=== PATIENT | female | born 1955 | race Hispanic/Latino ===

== ENCOUNTER 2018-12-21 19:51 | Emergency (ER) | payer MEDICARE ==
--- OUTSIDE RECORDS SUMMARY | 2018-12-21 19:53 | XMS REPORT ---
:1955 [facility] Address [address] [place] [address] [place] [id number] Care Team Providers Name Role Phone Unavailable Unavailable Unavailable Problems This patient has no known problems. Allergies, Adverse Reactions, Alerts This patient has no known allergies or adverse reactions. Medications This patient has no known medications.
--- OUTSIDE RECORDS SUMMARY | 2018-12-21 19:53 | XMS REPORT ---
:1955 Author Organization eClinicalWorks Care Team Providers Name Role Phone Tereso Nemesio Provider Role Unavailable Allergies No Known Allergies Problems Problem Type Condition Code Onset Dates Condition Status Problem Hx of cervical cancer Z85.41 Active Problem Traumatic subarachnoid hemorrhage S06.6X0S Active without loss of consciousness, sequela Problem Chronic kidney disease, stage 3 N18.3 Active Problem Stroke I63.9 Active Problem Renal insufficiency N28.9 Active Problem Hyperlipidemia E78.5 Active Problem Seizure R56.9 Active Problem Cancer C80.1 Active Problem Osteoarthritis M19.90 Active Problem Memory loss R41.3 Active Assessment Chronic kidney disease, stage 3 N18.3 Active Assessment Traumatic subarachnoid hemorrhage S06.6X0S Active without loss of consciousness, sequela Assessment History of fall Z91.81 Active Problem History of fall Z91.81 Active Assessment Hyperlipidemia E78.5 Active Problem Odynophagia R13.10 Active Medications Medication Code Code Instructions Start End Status Dosage System Date Date Ferrous [facility] 98323561688 325 (65 Fe) MG Active 1 tablet Sulfate Orally Once a day Lipitor ND 69331145833 40 MG Orally Active 1 tablet Once a day Fish Oil ND 92030211562 1000 MG Orally Active 1 capsule Once a day Aspir-81 ND 03147306761 81 MG Orally Active 1 tablet Once a day Calcium ND 87334587643 500 MG Orally Active not defined Results No Known Results Summary Purpose eClinicalWorks Submission
--- OUTSIDE RECORDS SUMMARY | 2018-12-21 19:53 | XMS REPORT ---
:1955 Author Organization eClinicalWorks Care Team Providers Name Role Phone Nemesio Rider Provider Role Unavailable Allergies, Adverse Reactions, Alerts Substance Reaction Event Type penicillin Info Not Available Drug Allergy Problems Problem Type Condition Code Onset Dates [...] Active Problem Memory loss R41.3 Active Assessment Noncompliance with medication Z91.14 Active regimen Assessment History of fall Z91.81 Active Assessment Traumatic subarachnoid hemorrhage S06.6X0S Active without loss of consciousness, sequela Assessment Hyperlipidemia E78.5 Active Problem History of fall Z91.81 Active Assessment Chronic kidney disease, stage 3 N18.3 Active Problem Odynophagia R13.10 Active Medications Medication Code Code Instructions Start End Status Dosage System Date Date Fish Oil [facility] 71840563873 1000 MG Orally Active 1 capsule Once a day Aspir-[address] [facility] 53801899697 81 MG Orally Active 1 tablet Once a day Lipitor [facility] 06597510181 40 MG Orally Active 1 tablet Once a day Ferrous [facility] 21944873268 325 (65 Fe) MG Active 1 tablet Sulfate Orally Once a day Calcium [facility] 98412977298 500 MG Orally Active not defined Results No Known Results Summary Purpose eClinicalWorks Submission
--- OUTSIDE RECORDS SUMMARY | 2018-12-21 19:54 | XMS REPORT ---
:1955 Author Organization eClinicalWorks Care Team Providers Name Role Phone Tereso Nemesio Provider Role Unavailable Allergies, Adverse Reactions, Alerts [...] Active Problem Memory loss R41.3 Active Assessment Dysuria R30.0 Active Problem History of fall Z91.81 Active Assessment Acute cystitis without hematuria N30.00 Active Problem Odynophagia R13.10 Active Medications Medication Code Code Instructions Start End Status Dosage System Date Date Lipitor [facility] 78373244673 40 MG Orally Active 1 tablet Once a day Fish Oil [facility] 05405827293 1000 MG Orally Active 1 capsule Once a day Ferrous Sulfate [facility] 91405990552 325 (65 Fe) MG Active 1 tablet Orally Once a day Nitrofurantoin [facility] 17746531305 100 MG Orally Jun 30, Jul 05, Active 1 capsule Monohyd Macro every 12 hrs 2018 2018 with food Aspir-81 [facility] 52228784391 81 MG Orally Active 1 tablet Once a day Calcium ND 69660201807 500 MG Orally Active not defined Results Name Result Date Reference Range Unit Abnormality Flag URINALYSIS AUTO W/O SCOPE ----Blood (Non-Hemolyzed) Negative 20180630 ----Ketones 1+ 20180630 ----Glucose (mg/dL) Negative 20180630 ----Protein (mg/dL) 2+ 20180630 ----Specific [place] >=1.030 20180630 ----pH 5.5 20180630 ----Leukocytes Trace 20180630 ----Nitrite Negative 20180630 Summary Purpose eClinicalWorks Submission
--- OUTSIDE RECORDS SUMMARY | 2018-12-21 19:54 | XMS REPORT ---
:1955 Author Organization eClinicalWorks Care Team Providers Name Role Phone Nemesio Rider Provider Role Unavailable Allergies No Known Allergies Problems Problem Type Condition Code Onset Dates Condition Status Problem Hx of cervical cancer Z85.41 Active Problem Traumatic subarachnoid hemorrhage S06.6X0S Active without loss of consciousness, sequela Problem Chronic kidney disease, stage 3 N18.3 Active Problem History of fall Z91.81 Active Problem Odynophagia R13.10 Active Problem Stroke I63.9 Active Problem Renal insufficiency N28.9 Active Problem Hyperlipidemia E78.5 Active Problem Seizure R56.9 Active Problem Cancer C80.1 Active Problem Osteoarthritis M19.90 Active Problem Memory loss R41.3 Active Medications No Known Medications Results No Known Results Summary Purpose [employer] Submission
[2018-12-21] MEDS ORDERED: MORPHINE 2 MG/ML SYR ONE ×2 (20:36→23:28)
[2018-12-21] MEDS ORDERED: ONDANSETRON 4 MG/2 ML VIAL ONE (20:36)
[2018-12-21] MEDS ORDERED: NA CHLORIDE 0.9% 1,000 ML ONE (20:36)
[2018-12-21 20:46] LABS: Absolute Lymphocytes (CBC) 1.6 K/uL (0.7-4.9); Basophils % 0.5 % (0-1.3); Eosinophils % 0.2 % (0-4.4); Hematocrit 37.7 % (36.0-45.0); Lymphocytes % 12.6 % (15.3-44.8); MPV 9.4 fL (7.6-11.3); Monocytes % 7.5 % (3.3-12.3); RBC Red Blood Cell Count 4.11 M/uL (3.86-4.86)
[2018-12-21 20:56] LABS: Protime INR 0.97
[2018-12-21 20:59] LABS: Urine Blood NEGATIVE (NEG); Urine Glucose NEGATIVE (NEG); Urine Protein 1+ (NEG); Urine Specific Gravity 1.025 (1.005-1.030)
[2018-12-21 21:04] LABS: ALT/SGPT 19 U/L (12-78); AST/SGOT 12 U/L (15-37); Albumin 3.4 g/dL (3.4-5.0); Alkaline Phosphatase 85 U/L (45-117); BUN Blood Urea Nitrogen 20 mg/dL (7-18); Bicarbonate 28 mmol/L (21-32); Bilirubin Direct 0.1 mg/dL (0-0.2); Bilirubin Total 0.3 mg/dL (0.2-1.0); Glucose Level 125 mg/dL (74-106); NT PRO-BNP 196 pg/mL (<125); Potassium 3.5 mmol/L (3.5-5.1); Protein, Total 6.4 g/dL (6.4-8.2); Sodium Level 136 mmol/L (136-145); Troponin (Emerg Dept Use Only) < 0.02 ng/mL (0.0-0.045)
--- NOTE | 2018-12-21 21:34 | EDPHYS ---
Physician Documentation [facility] Name: Hodan Dalal Age: 63 yrs Sex: Female : 1955 Arrival Date: 12/21/2018 Time: 19:53 Bed 2 Private MD: ED Physician Kwadwo Blackburn HPI: 12/21 20:43 This 63 yrs old Female presents to ER via EMS with complaints of fall , right dianna femur pain, swelling. 20:43 The patient presents with decreased range of motion, an injury, pain. The complaints dianna affect the lateral aspect of right thigh, right hamstring, medial aspect of right thigh and right quadriceps. Context: The problem was sustained at home. Onset: The symptoms/episode began/occurred just prior to arrival. Treatment prior to arrival includes: splinting the affected extremity. Severity of symptoms: At their worst the symptoms were moderate, in the emergency department the symptoms are unchanged. The patient has not experienced similar symptoms in the past. Historical: - Allergies: 20:11 PENICILLINS; tl2 - Home Meds: 20:11 atorvastatin oral oral [Active]; tl2 - PMHx: 20:11 Hyperlipidemia; tl2 - Immunization history:: Adult Immunizations up to date. - Social history:: Smoking status: Patient/guardian denies using tobacco. - Immunization history: Last tetanus immunization: unknown. - Ebola Screening: : No symptoms or risks identified at this time. - Family history:: not pertinent. ROS: 20:43 Constitutional: Negative for fever, chills, and weight loss, Eyes: Negative for injury, dianna pain, redness, and discharge, ENT: Negative for injury, pain, and discharge, Neck: Negative for injury, pain, and swelling, Cardiovascular: Negative for chest pain, palpitations, and edema, Respiratory: Negative for shortness of breath, cough, wheezing, and pleuritic chest pain, Abdomen/GI: Negative for abdominal pain, nausea, vomiting, diarrhea, and constipation, Back: Negative for injury and pain, : Negative for injury, bleeding, discharge, and swelling, Skin: Negative for injury, rash, and discoloration, Neuro: Negative for headache, weakness, numbness, tingling, and seizure, Psych: Negative for depression, anxiety, suicide ideation, homicidal ideation, and hallucinations, Allergy/Immunology: Negative for hives, rash, and allergies, Endocrine: Negative for neck swelling, polydipsia, polyuria, polyphagia, and marked weight changes, Hematologic/Lymphatic: Negative for swollen nodes, abnormal bleeding, and unusual bruising. 20:43 MS/extremity: Positive for decreased range of motion, pain, swelling, tenderness, of the lateral aspect of right thigh, right hamstring, medial aspect of right thigh and right quadriceps. Exam: 20:43 Constitutional: This is a well developed, well nourished patient who is awake, alert, dianna and in no acute distress. Head/Face: Normocephalic, atraumatic. Eyes: Pupils equal round and reactive to light, extra-ocular motions intact. Lids and lashes normal. Conjunctiva and sclera are non-icteric and not injected. Cornea within normal limits. Periorbital areas with no swelling, redness, or edema. ENT: Nares patent. No nasal discharge, no septal abnormalities noted. Tympanic membranes are normal and external auditory canals are clear. Oropharynx with no redness, swelling, or masses, exudates, or evidence of obstruction, uvula midline. Mucous membranes moist. Neck: Trachea midline, no thyromegaly or masses palpated, and no cervical lymphadenopathy. Supple, full range of motion without nuchal rigidity, or vertebral point tenderness. No Meningismus. Chest/axilla: Normal chest wall appearance and motion. Nontender with no deformity. No lesions are appreciated. Cardiovascular: Regular rate and rhythm with a normal S1 and S2. No gallops, murmurs, or rubs. Normal PMI, no JVD. No pulse deficits. Respiratory: Lungs have equal breath sounds bilaterally, clear to auscultation and percussion. No rales, rhonchi or wheezes noted. No increased work of breathing, no retractions or nasal flaring. Abdomen/GI: Soft, non-tender, with normal bowel sounds. No distension or tympany. No guarding or rebound. No evidence of tenderness throughout. Back: No spinal tenderness. No costovertebral tenderness. Full range of motion. Female : Normal external genitalia. Skin: Warm, dry with normal turgor. Normal color with no rashes, no lesions, and no evidence of cellulitis. Neuro: Awake and alert, GCS 15, oriented to person, place, time, and situation. Cranial nerves II-XII grossly intact. Motor strength 5/5 in all extremities. Sensory grossly intact. Cerebellar exam normal. Normal gait. Psych: Awake, alert, with orientation to person, place and time. Behavior, mood, and affect are within normal limits. 20:43 Musculoskeletal/extremity: Extremities: decreased ROM, pain, swelling, ROM: limited active range of motion due to pain, limited passive range of motion due to pain, Circulation is intact in all extremities. Sensation intact. Compartment Syndrome exam of affected extremity: is normal. DVT Exam: negative Homans' sign noted on exam, no appreciated bluish discoloration, no erythema, no increased warmth, pain, swelling, tenderness. Vital Signs: 20:11 BP 109 / 57; Pulse 70; Resp 18; Pulse Ox 95% on R/A; Weight 68.04 kg; Height 5 ft. 1 tl2 in. (154.94 cm); Pain 10/10; 21:30 BP 106 / 71; Pulse 80; Resp 17; Pulse Ox 97% ; Pain 5/10; tl1 22:44 BP 98 / 56; Pulse 70; Resp 15; Pulse Ox 96% ; Pain 3/10; tl1 20:11 Body Mass Index 28.34 (68.04 kg, 154.94 cm) tl2 [place] Coma Score: 20:11 Eye Response: spontaneous(4). Verbal Response: oriented(5). Motor Response: obeys tl2 commands(6). Total: 15. Trauma Score (Adult): 20:11 Eye Response: spontaneous(1); Verbal Response: oriented(1); Motor Response: obeys tl2 commands(2); Systolic BP: > 89 mm Hg(4); Respiratory Rate: 10 to 29 per min(4); Mantador Score: 15; Trauma Score: 12 Procedures: 23:25 Splinting: Splint applied to right leg using Orthoglass splint, applied by myself. dianna Examined by me, post splint application: neurovascular intact, 2+ distal pulses palpable, brisk capillary refill noted, Patient tolerated well. MDM: 19:58 Patient medically screened. [facility] 20:46 Data reviewed: vital signs, nurses notes, lab test result(s), EKG, radiologic studies, [facility] plain films. 12/21 20:01 Order name: Basic Metabolic Panel [facility] 12/21 20: Order name: CBC with Diff; Complete Time: 21:29 [facility] 12/21 20:01 Order name: LFT's; Complete Time: 21:29 [facility] 12/21 20:01 Order name: Magnesium; Complete Time: 21:29 [facility] 12/21 20:01 Order name: NT PRO-BNP; Complete Time: 21:29 [facility] 12/21 20:01 Order name: PT-INR; Complete Time: 21:29 [facility] 12/21 20:01 Order name: Troponin (emerg Dept Use Only); Complete Time: 21:29 [facility] 12/21 20:01 Order name: XRAY Chest (1 view) [facility] 12/21 20:01 Order name: Pelvis XRAY [facility] 12/21 20:01 Order name: Urine Culture [facility] 12/21 20:01 Order name: Hip Right 2 View XRAY [facility] 12/21 20:01 Order name: Femur Right XRAY [facility] 12/21 20:05 Order name: Basic Metabolic Panel; Complete Time: 21:29 EDMS 12/21 20:54 Order name: Urine Dipstick--Ancillary (enter results) [facility] 12/21 20:01 Order name: EKG; Complete Time: 20:06 [facility] 12/21 20:01 Order name: Cardiac monitoring; Complete Time: 20:21 [facility] 12/21 20:01 Order name: EKG - Nurse/Tech; Complete Time: 20:21 [facility] 12/21 20:01 Order name: IV Saline Lock; Complete Time: 20:21 [facility] 12/21 20:01 Order name: Labs collected and sent; Complete Time: 23:55 [facility] 12/21 20:01 Order name: O2 Per Protocol; Complete Time: 20:21 [facility] 12/21 20:01 Order name: O2 Sat Monitoring; Complete Time: 20:21 [facility] 12/21 20:43 Order name: Tib Fib Right XRAY [facility] 12/21 20:51 Order name: Larsen; Complete Time: 20:51 tl1 12/21 21:29 Order name: Splint - Long Leg: Posterior w/ Stirrup; Complete Time: 23:24 [facility] Administered Medications: 20:25 Drug: NS 0.9% 1000 ml Route: IV; Rate: 125 ml/hr; Site: right forearm; tl2 23:53 Follow up: IV Status: Infusion continued upon transfer tl2 20:25 Drug: morphine 2 mg Route: IVP; Site: right forearm; tl2 21:00 Follow up: Response: No adverse reaction; Pain is decreased tl2 20:25 Drug: Zofran 4 mg Route: IVP; Site: right forearm; tl2 21:00 Follow up: Response: No adverse reaction tl2 23:23 Drug: morphine 2 mg Route: IVP; Infused Over: 2 mins; Site: right forearm; tl1 23:50 Follow up: Response: No adverse reaction; Pain is decreased tl2 Disposition: 12/21/18 21:34 Transfer ordered to [facility]. Diagnosis are Fall due to bumping against object, Displaced spiral fracture of shaft of right femur - periprosthetic. - Reason for transfer: Higher level of care. - Accepting physician is to [facility], trauma , ortho. - Condition is Fair. - Problem is new. - Symptoms have improved. Signatures: Dispatcher [employer] Kwadwo Stokes MD MD cha Lasagna, Tonya, RN RN tl1 Taryn Lyons RN RN tl2 Corrections: (The following items were deleted from the chart) 23:55 21:34 12/21/2018 21:34 Transfer ordered to [facility]. Diagnosis is Fall due to tl2 bumping against object; Displaced spiral fracture of shaft of right femur - periprosthetic. Reason for transfer: Higher level of care. Accepting physician is to [facility], trauma , ortho. Condition is Fair. Problem is new. Symptoms have improved. dianna
--- NOTE | 2018-12-21 21:34 | ER ---
Nurse's Notes [facility] Name: Hodan Dalal Age: 63 yrs Sex: Female : 1955 Arrival Date: 12/21/2018 Time: 19:53 Bed 2 Private MD: Diagnosis: Fall due to bumping against object;Displaced spiral fracture of shaft of right femur-periprosthetic Presentation: 12/21 20:09 Presenting complaint: EMS states: Pt fell in shower, possible right femur fracture. tl2 Transition of care: patient was not received from another setting of care. Onset of symptoms was December 21, 2018. Risk Assessment: Do you want to hurt yourself or someone else? Patient reports no desire to harm self or others. Initial Sepsis Screen: Does the patient meet any 2 criteria? No. Patient's initial sepsis screen is negative. Does the patient have a suspected source of infection? No. Patient's initial sepsis screen is negative. Care prior to arrival: IV initiated. 24 g R hand. 20:09 Method Of Arrival: EMS tl2 20:09 Acuity: DEON 2 tl2 20:11 Mechanism of Injury: Fall from standing position. Trauma event details: Injury occurred tl2 in the [facility]. Historical: - Allergies: 20:11 PENICILLINS; tl2 - Home Meds: 20:11 atorvastatin oral oral [Active]; tl2 - PMHx: 20:11 Hyperlipidemia; tl2 - Immunization history:: Adult Immunizations up to date. - Social history:: Smoking status: Patient/guardian denies using tobacco. - Immunization history: Last tetanus immunization: unknown. - Ebola Screening: : No symptoms or risks identified at this time. - Family history:: not pertinent. Screenin:13 Abuse screen: Denies threats or abuse. Nutritional screening: No deficits noted. tl2 Tuberculosis screening: No symptoms or risk factors identified. Fall Risk Fall in past 12 months (25 points). IV access (20 points). Primary Survey: 20:11 NO uncontrolled hemorrhage observed. A: The patient is alert. Airway: patent, No tl2 supplemental oxygen in use on arrival. Breathing/Chest: Respiratory pattern: regular, Respiratory effort: spontaneous, unlabored, Chest inspection: symmetrical rise and fall of the chest. Circulation: Pulses: palpable . Disability Alert. Exposure/Environment: All clothing and personal items were removed. Forensic evidence collection is not deemed to be indicated at this time. Items placed in patient belonging bag. There is no evidence of uncontrolled external bleeding. Obvious injury(ies) are noted at this time: deformity right leg. 21:10 Reassessment Breathing/Chest Respiratory pattern Regular Respiratory effort Spontaneous tl2 Unlabored Breath sounds Clear Chest inspection Symmetrical Circulation Color [place] Disability Alert. Secondary Survey: 20:11 HEENT: No deficits noted. Gastrointestinal: No deficits noted. : No deficits noted. tl2 Musculoskeletal: Bony deformity noted of medial aspect of right thigh Swelling absent. Assessment: 20:15 General: Appears uncomfortable, Behavior is calm, cooperative, appropriate for age. tl1 Pain: Complains of pain in right leg and right quadriceps and medial aspect of right thigh and right hamstring and lateral aspect of right thigh Pain currently is 10 out of 10 on a pain scale. Quality of pain is described as aching, sharp, shooting. Neuro: Level of Consciousness is awake, alert, obeys commands, Oriented to person, place, time, situation. Cardiovascular: Denies chest pain. Respiratory: Airway is patent Trachea midline Respiratory effort is even, unlabored, Breath sounds are clear bilaterally. GI: Abdomen is non-distended, Bowel sounds present X 4 quads. : No signs and/or symptoms were reported regarding the genitourinary system. EENT: No signs and/or symptoms were reported regarding the EENT system. Musculoskeletal: Bony deformity noted of lateral aspect of right thigh Swelling present in medial aspect of right thigh and lateral aspect of right thigh Tenderness present in right leg and right quadriceps and medial aspect of right thigh and right hamstring and lateral aspect of right thigh Reports pain in right leg and right quadriceps and medial aspect of right thigh and right hamstring and lateral aspect of right thigh. Injury Description: Deformity sustained to medial aspect of right thigh and lateral aspect of right thigh. Vital Signs: 20:11 BP 109 / 57; Pulse 70; Resp 18; Pulse Ox 95% on R/A; Weight 68.04 kg; Height 5 ft. 1 tl2 in. (154.94 cm); Pain 10/10; 21:30 BP 106 / 71; Pulse 80; Resp 17; Pulse Ox 97% ; Pain 5/10; tl1 22:44 BP 98 / 56; Pulse 70; Resp 15; Pulse Ox 96% ; Pain 3/10; tl1 20:11 Body Mass Index 28.34 (68.04 kg, 154.94 cm) tl2 Yamini Coma Score: 20:11 Eye Response: spontaneous(4). Verbal Response: oriented(5). Motor Response: obeys tl2 commands(6). Total: 15. Trauma Score (Adult): 20:11 Eye Response: spontaneous(1); Verbal Response: oriented(1); Motor Response: obeys tl2 commands(2); Systolic BP: > 89 mm Hg(4); Respiratory Rate: 10 to 29 per min(4); Yamini Score: 15; Trauma Score: 12 ED Course: 19:53 Patient arrived in ED. am2 19:53 Jyotsna Mao MD is Private Physician. am2 19:58 Kwadwo Blackburn MD is Attending Physician. dianna 20:11 Triage completed. tl2 20:11 Arm band placed on right wrist. tl2 20:11 Patient maintains SpO2 saturation greater than 95% on room air. tl2 20:11 Maintain EMS IV. Dressing intact. Site clean \T\ dry. Gauge \T\ site: 24 g R FA. tl 2 20:13 Patient has correct armband on for positive identification. Bed in low position. Call tl2 light in reach. Side rails up X2. 20:52 Larsen cath inserted, using sterile technique, 18 Fr., by me, balloon inflated, to jb5 gravity drainage, clamped. urine specimen collected. 21:00 Thermoregulation: warm blanket given to patient. tl2 21:39 Pelvis XRAY In Process Unspecified. EDMS 21:39 Hip Right 2 View XRAY In Process Unspecified. EDMS 21:39 Femur Right XRAY In Process Unspecified. EDMS 21:40 Tib Fib Right XRAY In Process Unspecified. EDMS 21:54 XRAY Chest (1 view) In Process Unspecified. EDMS 23:39 No provider procedures requiring assistance completed. tl2 23:40 Patient transferred, IV remains in place. tl2 Administered Medications: 20:25 Drug: NS 0.9% 1000 ml Route: IV; Rate: 125 ml/hr; Site: right forearm; tl2 23:53 Follow up: IV Status: Infusion continued upon transfer tl2 20:25 Drug: morphine 2 mg Route: IVP; Site: right forearm; tl2 21:00 Follow up: Response: No adverse reaction; Pain is decreased tl2 20:25 Drug: Zofran 4 mg Route: IVP; Site: right forearm; tl2 21:00 Follow up: Response: No adverse reaction tl2 23:23 Drug: morphine 2 mg Route: IVP; Infused Over: 2 mins; Site: right forearm; tl1 23:50 Follow up: Response: No adverse reaction; Pain is decreased tl2 Output: 23:42 Urine: 100ml ([place]); Total: 100ml. tl2 Outcome: 21:34 ER care complete, transfer ordered by MD. bustamante 23:39 Transferred by ground EMS to [facility], Transfer form tl2 completed. 23:39 Condition: stable 23:39 Patient's length of stay in the Emergency Department was greater than 2 hours. 23:55 Patient left the ED. tl2 Signatures: Dispatcher [employer] EDMS Kwadwo Blackburn MD MD cha Lasagna, Tonya, RN RN tl1 Taryn Lyons RN RN tl2 Farzana Murillo [facility] Felicitas Roblero 2
[2018-12-21] MEDS ORDERED: DIPHENHYDRAMINE 50 MG/ML VIAL ONE (23:49)
--- NOTE | 2018-12-22 06:54 | EKG ---
Test Date: 2018-12-21 Test Time: 20:11:52 Shredding Machine Tender: YOAV MEASUREMENT RESULTS: Intervals: Rate: 66 MS: 130 QRSD: 84 QT: 424 QTc: 444 [place]: P: 28 MS: 130 QRS: 1 T: 19 INTERPRETIVE STATEMENTS: Normal sinus rhythm Low voltage QRS Borderline ECG Compared to ECG 01/21/2012 11:24:37 Low QRS voltage now present Sinus bradycardia no longer present Electronically Signed On 12-22-18 06:53:05 CDT by Maurisio Pang
--- NOTE | 2018-12-22 08:43 | RAD REPORT ---
EXAM DESCRIPTION: RAD - Pelvis - 12/21/2018 9:38 pm CLINICAL HISTORY: Fall, pelvic pain COMPARISON: December 2014 TECHNIQUE: AP imaging of the pelvis was obtained. FINDINGS: Lowest lumbar level is partially sacralized. No acute sacral ala or SI joint abnormality i dentifiable. Pubic symphysis degenerative changes are present have progressed slightly from compariso n. No pelvic fracture seen. No acute hip joint abnormality. Bilateral hip prostheses in place. IMPRESSION: No fracture or acute finding of the pelvis.
--- NOTE | 2018-12-22 08:45 | RAD REPORT ---
EXAM DESCRIPTION: RAD - Hip Right 2 View - 12/21/2018 9:38 pm CLINICAL HISTORY: Fall, pelvic and hip pain COMPARISON: None. FINDINGS: AP and cross-table lateral views were obtained. Spiral fracture of the proximal femoral sh aft is present. Right hip prosthesis in place. Cerclage wires are present around the proximal femur f rom a prior fracture repair. V/Q fracture begins near the inferior most cerclage wire. This involves or surrounds the distal half of the femoral shaft. No pathologic bone process. Approximately 20 degre es angulation deformity is present with lateral displacement of the shaft of the distal femur. No acute finding at the hip joint. IMPRESSION: Spiral fracture of the proximal shaft of the right femur. Fracture surrounds the distal half of the right femoral hip implant.
--- NOTE | 2018-12-22 08:47 | RAD REPORT ---
EXAM DESCRIPTION: RAD - Femur Right - 12/21/2018 9:38 pm CLINICAL HISTORY: Fall, pelvis, right hip and right leg pain COMPARISON: Pelvis and right hip films same date FINDINGS: Spiral fracture is present in the shaft of the femur. Fracture begins at the inferior cerc giselle wire and extends several cm below the tip of the femoral hip implant. Anterior and lateral 20 de gree angulation deformity is present of the distal femur. One shaft width displacement also present. No pathologic component seen. No acute finding at the hip joint. No air or foreign body in the soft t issues. IMPRESSION: Right femur spiral fracture in the midshaft as detailed.
--- NOTE | 2018-12-22 08:48 | RAD REPORT ---
EXAM DESCRIPTION: RAD - Tib Fib Right - 12/21/2018 9:40 pm CLINICAL HISTORY: Fall, pelvic and leg pain on the right COMPARISON: Pelvis hip and femur films same date FINDINGS: No fracture is identified. There is no dislocation or periosteal reaction noted. No acute or suspicious bony finding. No foreign body or other soft tissue abnormality. IMPRESSION: Negative right tibia & fibula examination.
--- NOTE | 2018-12-22 08:50 | RAD REPORT ---
EXAM DESCRIPTION: RAD - Chest Single View - 12/21/2018 9:54 pm CLINICAL HISTORY: Fall, femur fracture, preoperative examination COMPARISON: December 2011 TECHNIQUE: AP portable chest image was obtained 2151 hours . FINDINGS: No acute lung parenchymal process. Lung markings are similar to comparison. No failure or volume overload. Heart and vasculature are normal. No measurable pleural effusion and no pneumothorax . No acute bony abnormality seen. No acute aortic findings suspected. IMPRESSION: No acute cardiopulmonary process.
[2018-12-22 20:22] VITALS: BP 98/56; O2SAT 96
== END 2018-12-21 23:55 | disposition short-term general hospital (02) ==
LOC: ER 19:51
PROC: 2W3LX1Z Immobilization of Right Lower Extremity using Splint (ICD-10-PCS; principal; 2018-12-21)
DX: S72.341A Displaced spiral fracture of shaft of right femur, initial encounter for closed fracture (principal); M97.01XA Periprosthetic fracture around internal prosthetic right hip joint, initial encounter; W19.XXXA Unspecified fall, initial encounter; Y93.9 Activity, unspecified; Y92.009 Unspecified place in unspecified non-institutional (private) residence as the place of occurrence of the external cause; Z88.0 Allergy status to penicillin; E78.5 Hyperlipidemia, unspecified
CPT/HCPCS: 96361; 93005; 87088; 85025; 80048; 36415; 83735; 85610; 80076; 81003; 84484; 83880; 71045; 72170; 73502; 73552; 73590; 51702; 96375; 96374; 99285; 29505; J2270 ×2; J7030; J2405; 87086

== ENCOUNTER 2019-05-16 07:52 | Emergency (ER) | payer MEDICARE, OTHER ==
--- OUTSIDE RECORDS SUMMARY | 2019-05-16 07:54 | XMS REPORT ---
:1955 Author Organization [facility] Address [address] [place] [address] [place] [id number] Care Team Providers Name Role Phone Unavailable Unavailable Unavailable Problems This patient has no known problems. Allergies, Adverse Reactions, Alerts This patient has no known allergies or adverse reactions. Medications This patient has no known medications.
--- OUTSIDE RECORDS SUMMARY | 2019-05-16 07:55 | XMS REPORT | Summary of Care ---
:1955 Author Organization [facility] Address [address] [place] [address] Care Team Providers Name Role Phone Nemesio Rider Bree Primary Care Provider Tal Kern MD Unavailable Reason for Referral Radiology Services (Routine) Status Reason Specialty Diagnoses / Referred By Referred To Procedures Contact Contact New Request Diagnostic Diagnoses Periprosthetic fracture of shaft of femur [facility], Radiology Procedures XR FEMUR 2 VW RIGHT Silvestre Franco MD [address] [place] [address] [address] [place] [address] Encounter Details Date Type Department Care Team Description 02/24/2019 Abstract [facility] Jc Mabry Periprosthetic fracture Orthopaedic Surgery- MD Amilcar of shaft of femur [address] (Primary Dx) [address] [place] [address] 1.211 [id number] [place], [place] [phone] [address] [phone] Allergies Active Allergy Reactions Severity Noted Date Comments Morphine Rash Low 12/22/2018 Penicillins Itching, Rash 12/22/2005 documented as of this encounter (statuses as of 02/24/2019) Medications Medication Sig Dispensed Refills Start Date End Date Status atorvastatin 40 mg Take 40 mg by 0 11/22/2018 Active tablet mouth at bedtime. HYDROcodone-acetaminophe Take 1 tablet by 30 tablet 0 12/28/2018 Active n 10-325 mg mouth every 4 tabletIndications: (four) hours as Periprosthetic fracture needed for Pain of shaft of femur (scale 4-6) or Pain (scale 7-10). sennosides 8.6 mg Take 1 tablet by 14 tablet 0 12/28/2018 Active tabletIndications: mouth daily. Periprosthetic fracture of shaft of femur traMADol 50 mg Take 1 tablet by 30 tablet 0 02/09/2019 Active tabletIndications: mouth every 6 Periprosthetic fracture (six) hours as of shaft of femur needed for Pain (scale 4-6). 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 injury 06/24/2016 Fever 06/24/2016 Follow-up examination after orthopedic surgery 08/05/2013 Other follow-up examination(V67.59) 03/09/2007 Overview: Six month followup Malignant neoplasm of cervix uteri 12/21/2006 Overview: ICD10 Diagnosis Term [employer]ire [employer]er Utility 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 documented as of this encounter Last Filed Vital Signs Not on filedocumented in this encounter Plan of Treatment Date Type Specialty Care Team Description 02/24/2019 Appointment Radiology Silvestre Nguyễn MD [address] [facility] 2.[address] [place], [place] [id number] 02/24/2019 Office Visit Orthopedic Surgery Silvestre Nguyễn MD [address] [facility] [address] [place], [place] [address] Name Type Priority Associated Diagnoses Order Schedule XR FEMUR 2 VW RIGHT IMAGING Routine Periprosthetic fracture of Expected: , shaft of femur Expires: 02/25/2020 Health Maintenance Due Date Last Done Comments HEPATITIS C (HCV) SCREEN 1955 PNEUMOCOCCAL 0-64 YEARS COMBINED 1962 SERIES (1 of 3 - PCV13) DTaP,Tdap,and Td Vaccines (1 - 1975 Tdap) COLONOSCOPY 2006 Zoster Recombinant Vaccine 2006 (SHINGRIX) (1 of 2) MAMMOGRAM 03/23/2007 03/23/2006 LUNG CANCER SCREEN: Recommended 2011 03/23/2006 for age 55-80 with 30 + pack year history PAP SMEAR 07/04/2013 07/04/2010, 05/14/2009, 11/06/2008, Additional history exists INFLUENZA VACCINE (#1) 2019 documented as of this encounter Implants Implanted Type Area Audio Technician Device Shelf Model / Identifier Expiration Serial / Date Lot Fibula Segment, [facility] 11+ Cm Freeze Dried 11+ Cm #1006-12 - [id number] BONE Right: [facility] 1006-12 / Implanted: Qty: 1 on 12/22/2018 by Silvestre Nguyễn MD at [facility] [id number] / 0 Ishaan Hole Un3 Shunt Plate,14mm,W/Tab Unruly #[id number] - S0 [place] Right: Unruly [id number] / Implanted: Qty: 1 on 08/24/2016 by Tal Kern MD at [facility] Cover Head 0 / 0 Ishaan Hole Cover, Un3 10mm W/Tab Unruly #[id number] - S0 [place] Right: [employer] [id number] / Implanted: Qty: 1 on 08/24/2016 by Tal Kern MD at [facility] Cover Head 0 / 0 Cable With Crimp 1.1s751rw Sterile Synthes #298.801.01s - Sna CABLE Right: Synthes 08/19/2022 298.801.01S / Implanted: Qty: 1 on 12/22/2018 by Silvestre Nguyễn MD at [facility] Hip NA / [id number] Cable With Crimp 1.7e794pw Sterile Synthes #298.801.01s - S0 CABLE Right: Synthes 08/19/2022 298.801.01S / Implanted: Qty: 1 on 12/22/2018 by Silvestre Nguyễn MD at [facility] Hip 0 / [id number] Cable With Crimp 1.3r904iq Sterile Synthes #298.801.01s - S0 CABLE Right: Synthes 08/19/2022 298.801.01S / Implanted: Qty: 1 on 12/22/2018 by Silvestre Nguyễn MD at [facility] Hip 0 / [id number] Cable With Crimp 1.9c373wz Sterile Synthes #298.801.01s - S0 CABLE Right: Synthes 09/09/2022 298.801.01S / Implanted: Qty: 1 on 12/22/2018 by Silvestre Nguyễn MD at [facility] Hip 0 / [id number] Cable With Crimp 1.3v674rh Sterile Synthes #298.801.01s - S0 CABLE Right: Synthes 08/19/2022 298.801.01S / Implanted: Qty: 1 on 12/22/2018 by Silvestre Nguyễn MD at [facility] Hip 0 / [id number] Cable With Crimp 1.6u632iv Sterile Synthes #298.801.01s - S0 CABLE Right: Synthes 08/19/2022 298.801.01S / Implanted: Qty: 1 on 12/22/2018 by Silvestre Nguyễn MD at [facility] Hip 0 / [id number] Cable With Crimp 1.0i093nx Sterile Synthes #298.801.01s - S0 CABLE Right: Synthes 08/19/2022 298.801.01S / Implanted: Qty: 1 on 12/22/2018 by Silvestre Nguyễn MD at [facility] Hip 0 / [id number] Femoral Head, [employer] Oxinium 12/14 Taper 28 Mm -3 #[id number] - [id number] Femoral Right: [employer] 11/19/2017 [id number] / Implanted: Qty: 1 on 08/04/2013 by Wnedy Brewer MD at [facility] Head Hip / [id number] Femoral Head, [employer] Oxinium 12/14 Taper 28 Mm -3 #[id number] - [id number] Femoral Right: [employer] 01/20/2020 [id number] / Implanted: Qty: 1 on 10/13/2013 at [facility] Head Hip / [id number] Femoral Stem, [employer] Synergy Porous Coated Femoral Sz 12 #[id number] - [id number] Femoral Right: [employer] 04/21/2023 [id number] / Implanted: Qty: 1 on 08/04/2013 by Wendy Brewer MD at [facility] Stem Hip / [id number] Femoral Stem, [employer] Synergy Porous Femoral Component Sz 16 #[id number] - [id number] Femoral Right: [employer] 05/21/2023 [id number] / Implanted: Qty: 1 on 10/13/2013 at [facility] Stem Hip / [id number] Liner, [employer]hew R3 0deg Xlpe Acetabular 28mm Id X Od 46mm #[id number] - [id number] Liner Right: [employer] 01/20/2018 [id number] / Implanted: Qty: 1 on 08/04/2013 by Wendy Brewer MD at [facility] Hip / [id number] Plate, Synthes 4.5mm Va-Lcp Crvd Condylar 16 H/336mm/Rt #.416 - Sna PLATE Right: Synthes .416 / Implanted: Qty: 1 on 12/22/2018 by Silvestre Nguyễn MD at [facility] Leg NA / NA Screw, Unruly 1.5x4mm Stnd Cross-Pin Slf-Drill #[id number] - S0 SCREW Right: [place] [id number] / Implanted: Qty: 6 on 08/24/2016 by Tal Kern MD at [facility] Head 0 / 0 Screw Bone Compresion Locking 5.0mm 14mml Depuy Ref#02.221.514s - S0 SCREW Right: Depuy Synthes 07/22/2026 02.221.514S / Implanted: Qty: 1 on 12/22/2018 by Silvestre Nguyễn MD at [facility] Hip 0 / [id number] Screw, Synthes 5.0mm Periprosthetic Va Lckng Slf-Tpng/Strdrv/10mm #.231.010 - Sna SCREW Right: Synthes .010 / Implanted: Qty: 1 on 12/22/2018 by Silvestre Nguyễn MD at [facility] Leg NA / NA Screw, Synthes 5.0mm Periprosthetic Va Lckng Slf-Tpng/Strdrv/14mm #.231.014 - Sna SCREW Right: Synthes .014 / Implanted: Qty: 2 on 12/22/2018 by Silvestre Nguyễn MD at [facility] Leg NA / NA Screw, Synthes 5.0mm Periprosthetic Va Lckng Slf-Tpng/Strdrv/16mm #.231.016 - Sna SCREW Right: Synthes .016 / Implanted: Qty: 2 on 12/22/2018 by Silvestre Nguyễn MD at [facility] Leg NA / NA Screw, Synthes 5.0mm Periprosthetic Va Lckng Slf-Tpng/Strdrv/18mm #02.231.018 - Sna SCREW Right: Synthes .018 / Implanted: Qty: 2 on 12/22/2018 by Silvestre Nguyễn MD at [facility] Leg NA / NA Screw, Synthes 5.0mm Va Angle Lckng Slf-Tpng/Strdrv/28mm #02.231.228 - Sna SCREW Right: Synthes .228 / Implanted: Qty: 2 on 12/22/2018 by Silvestre Nguyễn MD at [facility] Leg NA / NA Screw, Synthes 5.0mm Va Angle Lckng Slf-Tpng/Strdrv/40mm #.231.240 - Sna SCREW Right: Synthes .240 / Implanted: Qty: 1 on 12/22/2018 by Silvestre Nguyễn MD at [facility] Leg NA / NA Screw, Synthes 5.0mm Va Angle Lckng Slf-Tpng/Strdrv/65mm #.231.265 - Sna SCREW Right: Synthes .265 / Implanted: Qty: 1 on 12/22/2018 by Silvestre Nguyễn MD at [facility] Leg NA / NA Screw, Synthes 5.0mm Va Angle Lckng Slf-Tpng/Strdrv/70mm #.231.270 - Sna SCREW Right: Synthes 270 / Implanted: Qty: 3 on 12/22/2018 by Silvestre Nguyễn MD at [facility] Leg NA / NA Shell, [employer]hew R3 3 Hole Acetabular 46mm #[id number] - [id number] Shell Right: [employer] 04/22/2018 [id number] / Implanted: Qty: 1 on 08/04/2013 by Wendy Brewer MD at [facility] Hip / [id number] Position Pin 4.5mm Threaded Cerclage Synthes #298.803s - S0 Supply Item Right : Synthes 08/19/2025 298.803S / Implanted: Qty: 1 on 12/22/2018 by Silvestre Nguyễn MD at [facility] Hip 0 / [id number] Position Pin 4.5mm Threaded Cerclage Synthes #298.803s - S0 Supply Item Right : Synthes 08/19/2025 298.803S / Implanted: Qty: 1 on 12/22/2018 by Silvestre Nguyễn MD at [facility] Hip 0 / [id number] Position Pin 4.5mm Threaded Cerclage Synthes #298.803s - S0 Supply Item Right : Synthes 01/19/2026 298.803S / Implanted: Qty: 1 on 12/22/2018 by Silvestre Nguyễn MD at [facility] Hip 0 / [id number] Wire, Jeanette Karolyn 16ga Short, 20cm #1292-60 - [id number] WIRE Right: Jeanette 1292-60 / Implanted: Qty: 2 on 10/13/2013 at [facility] Hip / 8mm Self Tapping T25 Stardrive Right: Depuy Synthes 02.231.008S / Implanted: Qty: 1 on 12/22/2018 by Silvestre Nguyễn MD at [facility] Leg NA / NA Cerclage Wire 4.5mm Right: Depuy Synthes 298.839S / Implanted: Qty: 3 on 12/22/2018 by Silvestre Nguyễn MD at [facility] Leg NA / NA documented as of this encounter Results Not on filedocumented in this encounter Visit Diagnoses Diagnosis Periprosthetic fracture of shaft of femur - Primary documented in this encounter Insurance Payer Benefit Plan / Subscriber ID Effective Phone Address Type Group Dates [facility] [id number] 2018-Prese Medicare Adv HEALTHCARE - HEALTHCARE DUAL nt HMO MANAGED COMPLETE O MEDICARE documented as of this encounter
--- OUTSIDE RECORDS SUMMARY | 2019-05-16 07:55 | XMS REPORT | Summary of Care ---
:1955 Author Organization [facility] Address [address] [place] [address] Care Team Providers Name Role Phone Tereso Nemesio Giron Primary Care Provider Tal Kern MD Unavailable Reason for Referral (Routine) Status Reason Specialty Diagnoses / Referred By Referred To Procedures Contact Contact New Request Location Physical Diagnoses Periprosthetic fracture of shaft of femur [facility] Therapy Procedures CONSULT/REFERRAL PHYSICAL THERAPY Silvestre Franco MD [address] [place] [address] 2.[address] [place] [address] Reason for Visit Reason Comments Follow-up Encounter Details Date Type Department Care Team Description 02/24/2019 Office Visit [facility] Silvestre Nguyễn Periprosthetic fracture Orthopaedic SurgeryJim Franco MD of shaft of femur [address] (Primary Dx) [address] [place] [address] 1.211 [facility] 2.[address] [place] [address] [phone] Allergies Active Allergy Reactions Severity Noted Date [...] Overview: Added automatically from request for surgery [id number] Blurry vision 09/06/2018 Frequent falls 08/24/2016 At [...] cervix uteri 12/21/2006 Overview: ICD10 Diagnosis 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 Metastasis Other diseases of lung, not elsewhere classified 12/21/2006 Overview: Pulmonary nodules 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 Overview: ICD10 Diagnosis 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 documented as of this encounter (statuses [...] of this encounter Last Filed Vital Signs Vital Sign Reading Time Taken Comments Blood Pressure 91/66 02/24/2019 2:42 PM CDT Pulse 79 02/24/2019 2:42 PM CDT Temperature 37.6 C (99.6 F) 02/24/2019 2:42 PM CDT Respiratory Rate - - Oxygen Saturation - - Inhaled Oxygen Concentration - - Weight 65.8 kg (145 lb) 02/24/2019 2:42 PM CDT Height 154.9 cm (5' 0.98") 02/24/2019 2:42 PM CDT Body Mass Index 27.42 02/24/2019 2:42 PM CDT documented in this encounter Progress Notes Jc Mabry MD - 02/24/2019 3:15 PM CDT ORTHO CLINIC NOTE 02/24/2019 CC: s/p right femur ORIF on 12/22/18 HPI: Hodan Dalal is a 63 year old female who presents to clinic for follow up. Patient is accompanied by her . She is doing well s/p the surgery with some continued minor pain in her right leg. She has been NWB on the RLE. She denies any numbness or tingling in her extremity. She denies any fever or chills. She has some skin breakdown from the tape on her anterior and posterior thigh. Interval History 02/24/2019: Hodan Dalal is a 63 year old female who presents to clinic for follow up. She states she is doingwell. Her pain has been well controlled. She is slowly transitioning to OTC medications. She has been compliant with her weight bearing restrictions. She has been having PT come to her house to work with her. She denies any issues with the incisions, which have healed up well. PAST MEDICAL HISTORY Past Medical History: Diagnosis Date Cancer cervical cancer sp chemo and radiation, metastatic brain lesions sp resection PONV (postoperative nausea and vomiting) Stroke PAST SURGICAL HISTORY has a past surgical history that includes head surgery proc unlisted (01/2004) ; pelvis/hip joint surgery unlisted (05/2006; 06/2006); total hip arthroplasty ( 08/04/2013); total hip arthroplasty revision (Right, 10/13/2013); hip debridement (Right, 11/02/2013); otilia hole with evacuation/drainage (Bilateral, 08/24/2016); magnetic resonance imaging under anesthesia (N/A, 09/07/2018); and femur orif ( Right, 12/22/2018). FAMILY HISTORY No family history on file. SOCIAL HISTORY Social History Tobacco Use Smoking status: Former Smoker Smokeless tobacco: Never Used Substance Use Topics Alcohol use: Not on file Drug use: Not on file REVIEW OF SYSTEMS Constitutional: no fever, no chills Eyes: no changes in vision ENMT: no sore throat, no congestion Cardiovascular: no chest pain Respiratory: no cough, no shortness of breath Gastrointestinal: no nausea, no vomiting, no diarrhea Genitourinary: no dysuria Integumentary: no itching, no rashes Neurological: no headaches, no seizures Hematologic/lymphatic: no bruising or bleeding tendencies CURRENT MEDS: Current Outpatient Medications on File Prior to Visit Medication Sig Dispense Refill traMADol 50 mg tablet Take 1 tablet by mouth every 6 (six) hours as needed for Pain (scale 4-6).30 tablet 0 HYDROcodone-acetaminophen 10-325 mg tablet Take 1 tablet by mouth every 4 ( four) hours as neededfor Pain (scale 4-6) or Pain (scale 7-10). 30 tablet 0 sennosides 8.6 mg tablet Take 1 tablet by mouth daily. 14 tablet 0 atorvastatin 40 mg tablet Take 40 mg by mouth at bedtime. No current facility-administered medications on file prior to visit. ALLERGIES: Allergies Allergen Reactions Pcn [Penicillins] Itching and Rash Morphine Rash PHYSICAL EXAM BP 91/66 | Pulse 79 | Temp 37.6 C (99.6 F) (Temporal Artery) | Ht 1.549 m (5' 0.98") | Wt 65.8 kg (145 lb) | BMI 27.42 kg/m Constitutional: NAD, well-nourished Eyes: Extraocular movements intact, conjunctivae pink ENMT: Normal hearing, trachea midline Cardiovascular: Pulses present, brisk capillary refill in extremities Respiratory: Breaths nonlabored, symmetrical chest expansion Gastrointestinal: Abdomen non-distended Skin: Warm and dry. No rashes or lesions. Neurologic: no focal deficits Psychiatric: A&OX3 with appropriate affect Musculoskeletal: Right leg: Incisions well healed without drainage noted; no erythema Blisters noted at last visit have all healed Motor intact to toes and ankle Palpable DP pulse RADIOLOGY Xr Femur 2 Vw Right Result Date: 02/24/2019 Stable hip arthroplasty change with healing periprosthetic fracture. ASSESSMENT Hodan Dalal is a 63 year old /White female s/p right femur ORIF on doing well. PLAN -Independently reviewed all relevant imaging studies and discussed my findings with patient -Educated patient on condition present -Ready to advance to WBAT on RLE -Referral for PT given to patient for PT -OTC medications for any additional pain control -Follow up with Dr. Brewer in 2 months with repeat x-rays to evaluate for any additional changesneeded to prosthesis -Advised patient to contact us with questions or concerns -All findings and diagnosis were discussed with patient at the time of visit. Patient states they understand and are in agreement with the treatment plan at this time. Jc Mabry MD Orthopaedic Surgery Resident, PGY3 02/24/2019 16:27 documented in this encounter Plan of Treatment Date Type Specialty Care Team Description 04/29/2019 Office Visit Orthopedic Surgery Wendy Brewer MD [id number] [place], [place] [address] Health Maintenance Due Date Last Done Comments [...] of this encounter Implants Implanted Type Area Director Experimental Medicine Device Shelf Model / Identifier Expiration Serial / Date Lot Fibula Segment, [facility] Tissue Services 11+ Cm Freeze Dried 11+ Cm #1006-12 - [id number] BONE Right: [facility] 1006-12 / Implanted: Qty: 1 on 12/22/2018 by Silvestre gNuyễn MD at [facility] Leg Tissue Services [id number] / 0 [place] Hole Un3 Shunt Plate,14mm,W/Tab Unruly #[id number] - S0 Bur[place]ole Right: Unruly [id number] / Implanted: Qty: 1 on 08/24/2016 by Tal Kern MD at [facility] Cover Head 0 / 0 Otilia Hole Cover, Un3 10mm W/Tab Unruly #[id number] - S0 Bur[place]ole Right: Makaweli [id number] / Implanted: Qty: 1 on 08/24/2016 by Tal Kern MD at [facility] Cover Head 0 / 0 Cable With Crimp 1.6r258xk Sterile Synthes #298.801.01s - Sna CABLE Right: Synthes 08/19/2022 298.801.01S / Implanted: Qty: 1 on 12/22/2018 by Silvestre Nguyễn MD at [facility] Hip NA / [id number] Cable With Crimp 1.6o218pe Sterile Synthes #298.801.01s - S0 CABLE Right: Synthes 08/19/2022 298.801.01S / Implanted: Qty: 1 on 12/22/2018 by Silvestre Nguyễn MD at [facility] Hip 0 / [id number] Cable With Crimp 1.2q070gi Sterile Synthes #298.801.01s - S0 CABLE Right: Synthes 08/19/2022 298.801.01S / Implanted: Qty: 1 on 12/22/2018 by Silvestre Nguyễn MD at [facility] Hip 0 / [id number] Cable With Crimp 1.6m417yx Sterile Synthes #298.801.01s - S0 CABLE Right: Synthes 09/09/2022 298.801.01S / Implanted: Qty: 1 on 12/22/2018 by Silvestre Nguyễn MD at [facility] Hip 0 / [id number] Cable With Crimp 1.6v099wo Sterile Synthes #298.801.01s - S0 CABLE Right: Synthes 08/19/2022 298.801.01S / Implanted: Qty: 1 on 12/22/2018 by Silvestre Nguyễn MD at [facility] Hip 0 / [id number] Cable With Crimp 1.6z935gn Sterile Synthes #298.801.01s - S0 CABLE Right: Synthes 08/19/2022 298.801.01S / Implanted: Qty: 1 on 12/22/2018 by Silvestre Nguyễn MD at [facility] Hip 0 / [id number] Cable With Crimp 1.1d988jg Sterile Synthes #298.801.01s - S0 CABLE Right: Synthes 08/19/2022 298.801.01S / Implanted: Qty: 1 on 12/22/2018 by Silvestre Nguyễn MD at [facility] Hip 0 / [id number] Femoral Head, [employer] Oxinium 12/14 Taper 28 Mm -3 #[id number] - [id number] Femoral Right: [employer] 11/19/2017 [id number] / Implanted: Qty: 1 on 08/04/2013 by Wendy Brewer MD at [facility] Head Hip / [id number] Femoral Head, [employer] Oxinium 12/14 Taper 28 Mm -3 #[id number] - [id number] Femoral Right: [employer]hew 01/20/2020 [id number] / Implanted: Qty: 1 on 10/13/2013 at [facility] Head Hip / [id number] Femoral Stem, [employer] Synergy Porous Coated Femoral Sz 12 #59848743 - [id number] Femoral Right: [employer]hew 04/21/2023 [id number] / Implanted: Qty: 1 on 08/04/2013 by Wendy Brewer MD at [facility] Stem Hip / [id number] Femoral Stem, [employer] Synergy Porous Femoral Component Sz 16 #28669377 - [id number] Femoral Right: [employer] Nephew 05/21/2023 [id number] / Implanted: Qty: 1 on 10/13/2013 at [facility] Stem Hip / [id number] Liner, Terrell [employer] Nephew R3 0deg Xlpe Acetabular 28mm Id X Od 46mm #[id number] - [id number] Liner Right: [employer] Nephew 01/20/2018 [id number] / Implanted: Qty: 1 on 08/04/2013 by Wendy Brewer MD at [facility] Hip / [id number] Plate, Synthes 4.5mm Va-Lcp Crvd Condylar 16 H/336mm/Rt #.416 - Sna PLATE Right: Synthes .416 / Implanted: Qty: 1 on 12/22/2018 by Silvestre Nguyễn MD at [facility] Leg NA / NA Screw, Makaweli 1.5x4mm Stnd Cross-Pin Slf-Drill #3028629 - S0 SCREW Right: Makaweli [id number] / Implanted: Qty: 6 on 08/24/2016 by Tal Kern MD at [facility] Head 0 / 0 Screw Bone Compresion Locking 5.0mm 14mml Depuy Ref#02.221.514s - S0 SCREW Right: Depuy Synthes 07/22/2026 02.221.514S / Implanted: Qty: 1 on 12/22/2018 by Silvestre Nguyễn MD at [facility] Hip 0 / [id number] Screw, Synthes 5.0mm Periprosthetic Va Lckng Slf-Tpng/Strdrv/10mm #.010 - Sna SCREW Right: Synthes .010 / Implanted: Qty: 1 on 12/22/2018 by Silvestre Nguyễn MD at [facility] Leg NA / NA Screw, Synthes 5.0mm Periprosthetic Va Lckng Slf-Tpng/Strdrv/14mm #.014 - Sna SCREW Right: Synthes .014 / Implanted: Qty: 2 on 12/22/2018 by Silvestre Nguyễn MD at [facility] Leg NA / NA Screw, Synthes 5.0mm Periprosthetic Va Lckng Slf-Tpng/Strdrv/16mm #.231.016 - Sna SCREW Right: Synthes .016 / Implanted: Qty: 2 on 12/22/2018 by Silvestre Nguyễn MD at [facility] Leg NA / NA Screw, Synthes 5.0mm Periprosthetic Va Lckng Slf-Tpng/Strdrv/18mm #02.231.018 - Sna SCREW Right: Synthes 231.018 / Implanted: Qty: 2 on 12/22/2018 by Silvestre Nguyễn MD at [facility] Leg NA / NA Screw, Synthes 5.0mm Va Angle Lckng Slf-Tpng/Strdrv/28mm #02.231.228 - Sna SCREW Right: Synthes .228 / Implanted: Qty: 2 on 12/22/2018 by Silvestre Nguyễn MD at [facility] Leg NA / NA Screw, Synthes 5.0mm Va Angle Lckng Slf-Tpng/Strdrv/40mm #02.231.240 - Sna SCREW Right: Synthes .240 / Implanted: Qty: 1 on 12/22/2018 by Silvestre Nguyễn MD at [facility] Leg NA / NA Screw, Synthes 5.0mm Va Angle Lckng Slf-Tpng/Strdrv/65mm #02.231.265 - Sna SCREW Right: Synthes 231.265 / Implanted: Qty: 1 on 12/22/2018 by Silvestre Nguyễn MD at [facility] Leg NA / NA Screw, Synthes 5.0mm Va Angle Lckng Slf-Tpng/Strdrv/70mm #02.231.270 - Sna SCREW Right: Synthes 231.270 / Implanted: Qty: 3 on 12/22/2018 by Silvestre Nguyễn MD at [facility] Leg NA / NA Shell, [employer] Nephew R3 3 Hole Acetabular 46mm #[id number] - [id number] Shell Right: [employer] Nephew 04/22/2018 [id number] / Implanted: Qty: 1 on 08/04/2013 by Wendy Brewer MD at [facility] Hip / [id number] Position Pin 4.5mm Threaded Cerclage Synthes #298.803s - S0 Supply Item Right : Synthes 08/19/2025 298.803S / Implanted: Qty: 1 on 12/22/2018 by Silvestre Nguyễn MD at [facility] Hip 0 / [id number] Position Pin 4.5mm Threaded Cerclage Synthes #298.803s - S0 Supply Item Right : Synthes 08/19/2025 298.803S / Implanted: Qty: 1 on 12/22/2018 by Silvestre Nguyễn MD at [facility] Hip 0 / [id number] Position Pin 4.5mm Threaded Cerclage Synthes #298.803s - S0 Supply Item Right : Synthes 01/19/2026 298.803S / Implanted: Qty: 1 on 12/22/2018 by Silvestre Nguyễn MD at [facility] Hip 0 / [id number] Wire, Jeanette Karolyn 16ga Short, 20cm #1292-60 - [id number] WIRE Right: Jeanette 1292-60 / Implanted: Qty: 2 on 10/13/2013 at [facility] Hip / 8mm Self Tapping T25 Stardrive Right: Depuy Synthes 02.231.008S / Implanted: Qty: 1 on 12/22/2018 by Silvestre Nguyễn MD at [facility] Leg NA / NA Cerclage Wire 4.5mm Right: Depuy Synthes 298.839S / Implanted: Qty: 3 on 12/22/2018 by Silvestre Nguyễn MD at [facility] Leg NA / NA documented as of this encounter Results Not on filedocumented in this encounter Visit Diagnoses Diagnosis Periprosthetic fracture of shaft of femur - Primary documented in this encounter Insurance Payer Benefit Plan / Subscriber ID Effective Phone Address Type Group Dates [facility] [id number] 2018-[facility] Medicare [facility] HEALTHCARE - HEALTHCARE DUAL nt HMO MANAGED COMPLETE O MEDICARE documented as of this encounter
--- OUTSIDE RECORDS SUMMARY | 2019-05-16 07:55 | XMS REPORT | Summary of Care ---
:1955 Author Organization [facility] Address [address] [place] [address] Care Team Providers Name Role Phone Nemesio Rider Primary Care Provider Tal Kern MD Unavailable Reason for Visit Reason Comments Notification Encounter Details Date Type Department Care Team Description 02/09/2019 Telephone [facility] Orthopaedic [facility], Silvestre Franco MD Notification Surgery- [facility] [address] [facility] [address] [place] [address] [place] [address] [place] [address] [place] [phone] Allergies Active Allergy Reactions Severity Noted Date Comments Morphine Rash Low 12/22/2018 Penicillins Itching, Rash 12/22/2005 documented as of this encounter (statuses as of 02/09/2019) Medications Medication Sig Dispensed Refills Start Date [...] as of this encounter (statuses as of 02/09/2019) Active Problems Problem Noted Date Periprosthetic fracture of shaft of femur 12/22/2018 Periprosthetic fracture of femur at tip of prosthesis, initial encounter 12/21 Overview: Added automatically from request for surgery [id number] Blurry vision 09/06/2018 Frequent falls 08/24/2016 At [...] cervix uteri 12/21/2006 Overview: ICD10 Diagnosis 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 Metastasis Other diseases of lung, not elsewhere classified 12/21/2006 Overview: Pulmonary nodules 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 Overview: ICD10 Diagnosis 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 documented as of this encounter (statuses as of 02/09/2019) Social History Tobacco Use Types Packs/Day Years [...] Date Type Specialty Care Team Description 02/24/2019 Office Visit Orthopedic Surgery Silvestre Nguyễn MD [address] [facility] [address] [place] [address] [phone] Health Maintenance Due Date Last Done Comments [...] of this encounter Implants Implanted Type Area Onyx Chip Terrazzo Worker Device Shelf Model / Identifier Expiration Serial / Date Lot Fibula Segment, [facility] Tissue Services 11+ Cm Freeze Dried 11+ Cm #1006-12 - [id number] BONE Right: [facility] 1006-12 / Implanted: Qty: 1 on 12/22/2018 by Silvestre Nguyễn MD at [facility] Leg Tissue Services [id number] / 0 [place] Hole Un3 Shunt Plate,14mm,W/Tab [place] #1665545 - S0 [place]ole Right: [place] [id number] / Implanted: Qty: 1 on 08/24/2016 by Tal Kern MD at [facility] Cover Head 0 / 0 [place] Hole Cover, Un3 10mm W/Tab Unruly #0372184 - S0 [place] Right: Unruly [id number] / Implanted: Qty: 1 on 08/24/2016 by Tal Kern MD at [facility] Cover Head 0 / 0 Cable With Crimp 1.3c437sp Sterile Synthes #298.801.01s - Sna CABLE Right: Synthes 08/19/2022 298.801.01S / Implanted: Qty: 1 on 12/22/2018 by Silvestre Nguyễn MD at [facility] Hip NA / [id number] Cable With Crimp 1.6t719hy Sterile Synthes #298.801.01s - S0 CABLE Right: Synthes 08/19/2022 298.801.01S / Implanted: Qty: 1 on 12/22/2018 by Silvestre Nguyễn MD at [facility] Hip 0 / [id number] Cable With Crimp 1.1s441wc Sterile Synthes #298.801.01s - S0 CABLE Right: Synthes 08/19/2022 298.801.01S / Implanted: Qty: 1 on 12/22/2018 by Silvestre Nguyễn MD at [facility] Hip 0 / [id number] Cable With Crimp 1.4q554js Sterile Synthes #298.801.01s - S0 CABLE Right: Synthes 09/09/2022 298.801.01S / Implanted: Qty: 1 on 12/22/2018 by Silvestre Nguyễn MD at [facility] Hip 0 / [id number] Cable With Crimp 1.4a218wq Sterile Synthes #298.801.01s - S0 CABLE Right: Synthes 08/19/2022 298.801.01S / Implanted: Qty: 1 on 12/22/2018 by Silvestre Nguyễn MD at [facility] Hip 0 / [id number] Cable With Crimp 1.3v549et Sterile Synthes #298.801.01s - S0 CABLE Right: Synthes 08/19/2022 298.801.01S / Implanted: Qty: 1 on 12/22/2018 by Silvestre Nguyễn MD at [facility] Hip 0 / [id number] Cable With Crimp 1.3i246ld Sterile Synthes #298.801.01s - S0 CABLE Right: Synthes 08/19/2022 298.801.01S / Implanted: Qty: 1 on 12/22/2018 by Silvestre Nguyễn MD at [facility] Hip 0 / [id number] Femoral Head, [employer] Oxinium 14 Taper 28 Mm -3 #95656641 - [id number] Femoral Right: [employer] 11/19/2017 [id number] / Implanted: Qty: 1 on 08/04/2013 by Wendy Brewer MD at [facility] Head Hip / [id number] Femoral Head, [employer] Oxinium 1214 Taper 28 Mm -3 #[id number] - [id number] Femoral Right: [employer]hew 01/20/2020 [id number] / Implanted: Qty: 1 on 10/13/2013 at [facility] Head Hip / [id number] Femoral Stem, [employer] Synergy Porous Coated Femoral Sz 12 #21573599 - [id number] Femoral Right: [employer]hew 04/21/2023 [id number] / Implanted: Qty: 1 on 08/04/2013 by Wendy Brewer MD at [facility] Stem Hip / [id number] Femoral Stem, [employer] Synergy Porous Femoral Component Sz 16 #77214428 - [id number] Femoral Right: Terrell [employer] Nephew 05/21/2023 [id number] / Implanted: Qty: 1 on 10/13/2013 at [facility] Stem Hip / [id number] Liner, Terrell [employer]hew R3 0deg Xlpe Acetabular 28mm Id X Od 46mm #69773980 - [id number] Liner Right: Terrell & Neph 01/20/2018 [id number] / Implanted: Qty: 1 on 08/04/2013 by Wendy Brewer MD at [facility] Hip / [id number] Plate, Synthes 4.5mm Va-Lcp Crvd Condylar 16 H/336mm/Rt #02.124.416 - Sna PLATE Right: Synthes .416 / Implanted: Qty: 1 on 12/22/2018 by Silvestre Nguyễn MD at [facility] Leg NA / NA Screw, Unruly 1.5x4mm Stnd Cross-Pin Slf-Drill #6481992 - S0 SCREW Right: Unruly [id number] / Implanted: Qty: 6 on 08/24/2016 by Tal Kern MD at [facility] Head 0 / 0 Screw Bone Compresion Locking 5.0mm 14mml Depuy Ref#02.221.514s - S0 SCREW Right: Depuy Synthes 07/22/2026 02.221.514S / Implanted: Qty: 1 on 12/22/2018 by Silvestre Nguyễn MD at [facility] Hip 0 / [id number] Screw, Synthes 5.0mm Periprosthetic Va Lckng Slf-Tpng/Strdrv/10mm #..010 - Sna SCREW Right: Synthes .010 / Implanted: Qty: 1 on 12/22/2018 by Silvestre Nguyễn MD at [facility] Leg NA / NA Screw, Synthes 5.0mm Periprosthetic Va Lckng Slf-Tpng/Strdrv/14mm #02.231.014 - Sna SCREW Right: Synthes .014 / Implanted: Qty: 2 on 12/22/2018 by Silvestre Nguyễn MD at [facility] Leg NA / NA Screw, Synthes 5.0mm Periprosthetic Va Lckng Slf-Tpng/Strdrv/16mm #02.231.016 - Sna SCREW Right: Synthes .016 / Implanted: Qty: 2 on 12/22/2018 by Silvestre Nguyễn MD at [facility] Leg NA / NA Screw, Synthes 5.0mm Periprosthetic Va Lckng Slf-Tpng/Strdrv/18mm #.231.018 - Sna SCREW Right: Synthes .018 / Implanted: Qty: 2 on 12/22/2018 by Silvestre Nguyễn MD at [facility] Leg NA / NA Screw, Synthes 5.0mm Va Angle Lckng Slf-Tpng/Strdrv/28mm #..228 - Sna SCREW Right: Synthes .228 / Implanted: Qty: 2 on 12/22/2018 by Silvestre Nguyễn MD at [facility] Leg NA / NA Screw, Synthes 5.0mm Va Angle Lckng Slf-Tpng/Strdrv/40mm #..240 - Sna SCREW Right: Synthes .240 / Implanted: Qty: 1 on 12/22/2018 by Silvestre Nguyễn MD at [facility] Leg NA / NA Screw, Synthes 5.0mm Va Angle Lckng Slf-Tpng/Strdrv/65mm #.231.265 - Sna SCREW Right: Synthes .265 / Implanted: Qty: 1 on 12/22/2018 by Silvestre Nguyễn MD at [facility] Leg NA / NA Screw, Synthes 5.0mm Va Angle Lckng Slf-Tpng/Strdrv/70mm #02.231.270 - Sna SCREW Right: Synthes .270 / Implanted: Qty: 3 on 12/22/2018 by Silvestre Nguyễn MD at [facility] Leg NA / NA Shell, Terrell [employer] Nephew R3 3 Hole Acetabular 46mm #[id number] - [id number] Shell Right: Terrell [employer] Nephew 04/22/2018 [id number] / Implanted: Qty: 1 on 08/04/2013 by Wendy Brewer MD at [facility] Hip / [id number] Position Pin 4.5mm Threaded Cerclage Synthes #298.803s - S0 Supply Item Right : Synthes 08/19/2025 298.803S / Implanted: Qty: 1 on 12/22/2018 by Silvestre Nguyễn MD at [facility] Hip 0 / [id number] Position Pin 4.5mm Threaded Cerclage Synthes #298.803s - S0 Supply Item Right : Synthes 08/19/2025 298.803S / Implanted: Qty: 1 on 12/22/2018 by Silvestre Nguyễn MD at [facility] Hip 0 / [id number] Position Pin 4.5mm Threaded Cerclage Synthes #298.803s - S0 Supply Item Right : Synthes 01/19/2026 298.803S / Implanted: Qty: 1 on 12/22/2018 by Silvestre Nguyễn MD at [facility] Hip 0 / [id number] Wire, Jeanette Karolyn 16ga Short, 20cm #1292-60 - [id number] WIRE Right: Jeanette 1292-60 / Implanted: Qty: 2 on 10/13/2013 at [facility] Hip / 8mm Self Tapping T25 Stardrive Right: Depuy Synthes 231.008S / Implanted: Qty: 1 on 12/22/2018 by Silvestre Nguyễn MD at [facility] Leg NA / NA Cerclage Wire 4.5mm Right: Depuy Synthes 298.839S / Implanted: Qty: 3 on 12/22/2018 by Silvestre Nguyễn MD at [facility] Leg NA / NA documented as of this encounter Results Not on filedocumented in this encounter Insurance Payer Benefit Plan / Subscriber ID Effective Phone Address Type Group Dates [facility] [id number] 2018-Prese Medicare Adv HEALTHCARE - HEALTHCARE DUAL nt HMO MANAGED COMPLETE HMO MEDICARE documented as of this encounter
--- OUTSIDE RECORDS SUMMARY | 2019-05-16 07:55 | XMS REPORT | Summary of Care ---
:1955 Author Organization [facility] - [facility] Address [address] [place] [address] Care Team Providers Name Role Phone Nemesio Rider Bree Primary Care Provider Tal Kern MD Unavailable Reason for Visit Reason Comments Rx Concern/Question Encounter Details Date Type Department Care Team Description 02/09/2019 Telephone [facility] Orth[facility], Silvestre Franco, Rx Concern /Question Surgery- [address] [place] [address] [phone] Allergies Active Allergy Reactions Severity Noted Date Comments Morphine Rash Low 12/22/2018 Penicillins Itching, Rash 12/22/2005 documented as of this encounter (statuses as of 02/09/2019) Medications Medication Sig Dispensed Refills Start Date End Date Status atorvastatin 40 mg Take 40 mg 0 11/22/2018 Active tablet by mouth at bedtime. HYDROcodone-acetamino Take 1 30 tablet 0 12/28/2018 Active phen 10-325 mg tablet by tabletIndications: mouth every Periprosthetic 4 (four) fracture of shaft of hours as femur needed for Pain (scale 4-6) or Pain (scale 7-10). sennosides 8.6 mg Take 1 14 tablet 0 12/28/2018 Active tabletIndications: tablet by Periprosthetic mouth daily. fracture of shaft of femur traMADol 50 mg Take 1 30 tablet 0 02/09/2019 Active tabletIndications: tablet by Periprosthetic mouth every fracture of shaft of 6 (six) femur hours as needed for Pain (scale 4-6). traMADOL 50 mg Take 1 30 tablet 0 12/28/2018 02/09/2019 Discontinued tabletIndications: tablet by Periprosthetic mouth every fracture of shaft of 6 (six) femur hours as needed for Pain (scale 4-6). 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 Metastasis Other diseases of lung, not elsewhere classified 12/21/2006 Overview: Pulmonary nodules 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 Overview: ICD10 Diagnosis 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 documented as of this encounter (statuses [...] Office Visit Orthopedic Surgery Silvestre Nguyễn MD [address] [facility] [address] [place] [address] [phone] Health Maintenance Due Date Last Done Comments [...] of this encounter Implants Implanted Type Area Work Manager Device Shelf Model / Identifier Expiration Serial / Date Lot Fibula Segment, [facility] Tissue Services 11+ Cm Freeze Dried 11+ Cm #1006-12 - [id number] BONE Right: [place] [id number] / Implanted: Qty: 1 on 12/22/2018 by Silvestre Nguyễn MD at [facility] Leg Tissue Services [id number] / 0 [place] Un3 Shunt Plate,14mm,W/Tab Unruly #[id number] - S0 [place] Right: [place] [id number] / Implanted: Qty: 1 on 08/24/2016 by Tal Kern MD at [facility] Cover Head 0 / 0 [place] Cover, Un3 10mm W/Tab Unruly #[id number] - S0 [place] Right: Unruly [id number] / Implanted: Qty: 1 on 08/24/2016 by Tal Kern MD at [facility] Cover Head 0 / 0 Cable With Crimp 1.9y646ic Sterile Synthes #298.801.01s - Sna CABLE Right: Synthes 08/19/2022 298.801.01S / Implanted: Qty: 1 on 12/22/2018 by Silvestre Nguyễn MD at [facility] Hip NA / [id number] Cable With Crimp 1.8z057qh Sterile Synthes #298.801.01s - S0 CABLE Right: Synthes 08/19/2022 298.801.01S / Implanted: Qty: 1 on 12/22/2018 by Silvestre Nguyễn MD at [facility] Hip 0 / [id number] Cable With Crimp 1.0w853li Sterile Synthes #298.801.01s - S0 CABLE Right: Synthes 08/19/2022 298.801.01S / Implanted: Qty: 1 on 12/22/2018 by Silvestre Nguyễn MD at [facility] Hip 0 / [id number] Cable With Crimp 1.0v421qr Sterile Synthes #298.801.01s - S0 CABLE Right: Synthes 09/09/2022 298.801.01S / Implanted: Qty: 1 on 12/22/2018 by Silvestre Nguyễn MD at [facility] Hip 0 / [id number] Cable With Crimp 1.2h845ob Sterile Synthes #298.801.01s - S0 CABLE Right: Synthes 08/19/2022 298.801.01S / Implanted: Qty: 1 on 12/22/2018 by Silvestre Nguyễn MD at [facility] Hip 0 / [id number] Cable With Crimp 1.7b774zy Sterile Synthes #298.801.01s - S0 CABLE Right: Synthes 08/19/2022 298.801.01S / Implanted: Qty: 1 on 12/22/2018 by Silvestre Nguyễn MD at [facility] Hip 0 / [id number] Cable With Crimp 1.9o429pf Sterile Synthes #298.801.01s - S0 CABLE Right: Synthes 08/19/2022 298.801.01S / Implanted: Qty: 1 on 12/22/2018 by Silvestre Nguyễn MD at [facility] Hip 0 / [id number] Femoral Head, [employer]hew Oxinium 06/04 Taper 28 Mm -3 #[id number] - [id number] Femoral Right: [employer]hew 11/19/2017 [id number] / Implanted: Qty: 1 on 08/04/2013 by Wendy Brewer MD at [facility] Head Hip / [id number] Femoral Head, [employer] Oxinium 12/14 Taper 28 Mm -3 #[id number] - [id number] Femoral Right: [employer]hew 01/20/2020 [id number] / Implanted: Qty: 1 on 10/13/2013 at [facility] Head Hip / [id number] Femoral Stem, [employer]hew Synergy Porous Coated Femoral Sz 12 #08425560 - [id number] Femoral Right: [employer]hew 04/21/2023 [id number] / Implanted: Qty: 1 on 08/04/2013 by Wendy Brewer MD at [facility] Stem Hip / [id number] Femoral Stem, [employer] Synergy Porous Femoral Component Sz 16 #73512294 - [id number] Femoral Right: [employer]hew 05/21/2023 [id number] / Implanted: Qty: 1 on 10/13/2013 at [facility] Stem Hip / [id number] Liner, Terrell [employer] Nephew R3 0deg Xlpe Acetabular 28mm Id X Od 46mm #[id number] - [id number] Liner Right: Terrell [employer] Neph 01/20/2018 [id number] / Implanted: Qty: 1 on 08/04/2013 by Wendy Brewer MD at [facility] Hip / [id number] Plate, Synthes 4.5mm Va-Lcp Crvd Condylar 16 H/336mm/Rt #02.124.416 - Sna PLATE Right: Synthes 02.124.416 / Implanted: Qty: 1 on 12/22/2018 by Silvestre Nguyễn MD at [facility] Leg NA / NA Screw, [place] 1.5x4mm Stnd Cross-Pin Slf-Drill #8068564 - S0 SCREW Right: [place] [id number] / Implanted: Qty: 6 on 08/24/2016 by Tal Kern MD at [facility] Head 0 / 0 Screw Bone Compresion Locking 5.0mm 14mml Depuy Ref#02.221.514s - S0 SCREW Right: Depuy Synthes 07/22/2026 02.221.514S / Implanted: Qty: 1 on 12/22/2018 by Silvestre Nguyễn MD at [facility] Hip 0 / [id number] Screw, Synthes 5.0mm Periprosthetic Va Lckng Slf-Tpng/Strdrv/10mm #02.231.010 - Sna SCREW Right: Synthes .010 / Implanted: Qty: 1 on 12/22/2018 by Silvestre Nguyễn MD at [facility] Leg NA / NA Screw, Synthes 5.0mm Periprosthetic Va Lckng Slf-Tpng/Strdrv/14mm #02.231.014 - Sna SCREW Right: Synthes 231.014 / Implanted: Qty: 2 on 12/22/2018 by Silvestre Nguyễn MD at [facility] Leg NA / NA Screw, Synthes 5.0mm Periprosthetic Va Lckng Slf-Tpng/Strdrv/16mm #02.231.016 - Sna SCREW Right: Synthes .016 / Implanted: Qty: 2 on 12/22/2018 by Silvestre Nguyễn MD at [facility] Leg NA / NA Screw, Synthes 5.0mm Periprosthetic Va Lckng Slf-Tpng/Strdrv/18mm #.231.018 - Sna SCREW Right: Synthes .018 / Implanted: Qty: 2 on 12/22/2018 by Silvestre Nguyễn MD at [facility] Leg NA / NA Screw, Synthes 5.0mm Va Angle Lckng Slf-Tpng/Strdrv/28mm #.231.228 - Sna SCREW Right: Synthes .228 / Implanted: Qty: 2 on 12/22/2018 by Silvestre Nguyễn MD at [facility] Leg NA / NA Screw, Synthes 5.0mm Va Angle Lckng Slf-Tpng/Strdrv/40mm #02.231.240 - Sna SCREW Right: Synthes .240 / Implanted: Qty: 1 on 12/22/2018 by Silvestre Nguyễn MD at [facility] Leg NA / NA Screw, Synthes 5.0mm Va Angle Lckng Slf-Tpng/Strdrv/65mm #02.231.265 - Sna SCREW Right: Synthes .265 / Implanted: Qty: 1 on 12/22/2018 by Silvestre Nguyễn MD at [facility] Leg NA / NA Screw, Synthes 5.0mm Va Angle Lckng Slf-Tpng/Strdrv/70mm # - Sna SCREW Right: Synthes / Implanted: Qty: 3 on 12/22/2018 by Silvestre Nguyễn MD at [facility] Leg NA / NA Shell, [employer] Nephew R3 3 Hole Acetabular 46mm #[id number] - [id number] Shell Right: Ter[employer] Nephew 04/22/2018 [id number] / Implanted: Qty: 1 on 08/04/2013 by Wendy Brewer MD at [facility] Hip / [id number] Position Pin 4.5mm Threaded Cerclage Synthes #298.803s - S0 Supply Item Right : Synthes 08/19/2025 298.803S / Implanted: Qty: 1 on 12/22/2018 by Silvestre Nguyễn MD at [facility] Hip 0 / [id number] Position Pin 4.5mm Threaded Cerclage Synthes #298.803s - S0 Supply Item Right : Synthes 08/19/2025 298.803S / Implanted: Qty: 1 on 12/22/2018 by Silvestre Nguyễn MD at [facility] Hip 0 / [id number] Position Pin 4.5mm Threaded Cerclage Synthes #298.803s - S0 Supply Item Right : Synthes 01/19/2026 298.803S / Implanted: Qty: 1 on 12/22/2018 by Silvestre Nguyễn MD at [facility] Hip 0 / [id number] Wire, Jeanette Karolyn 16ga Short, 20cm #1292-60 - [id number] WIRE Right: Jeanette 1292-60 / Implanted: Qty: 2 on 10/13/2013 at [facility] Hip / 8mm Self Tapping T25 Stardrive Right: Depuy Synthes .008S / Implanted: Qty: 1 on 12/22/2018 by Silvestre Nguyễn MD at [facility] Leg NA / NA Cerclage Wire 4.5mm Right: Depuy Synthes 298.839S / Implanted: Qty: 3 on 12/22/2018 by Silvestre Nguyễn MD at [facility] Leg NA / NA documented as of this encounter Results Not on filedocumented in this encounter Visit Diagnoses Diagnosis Periprosthetic fracture of shaft of femur documented in this encounter Insurance Payer Benefit Plan / Subscriber ID Effective Phone Address Type Group Dates [facility] [id number] 2018-[facility] Medicare [facility] HEALTH[facility] - HEALTHCARE DUAL nt HMO MANAGED COMPLETE O MEDICARE documented as of this encounter
--- OUTSIDE RECORDS SUMMARY | 2019-05-16 07:55 | XMS REPORT | Summary of Care ---
:1955 Author Organization [facility] - [facility] Address [address] [place] [address] Care Team Providers Name Role Phone Nemesio Rider Bree Primary Care Provider Tal Kern MD Unavailable Reason for Visit Reason Comments Rx Concern/Question Encounter Details Date Type Department Care Team Description 02/09/2019 Telephone [facility] Orthopaedic [facility], Silvestre Franco, Rx Concern /Question Surgery- [address] [address] [place] [address] [phone] Allergies Active Allergy Reactions Severity Noted Date [...] Overview: Added automatically from request for surgery [id number] Blurry vision 09/06/2018 Frequent falls 08/24/2016 At [...] cervix uteri 12/21/2006 Overview: ICD10 Diagnosis 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 Metastasis Other diseases of lung, not elsewhere classified 12/21/2006 Overview: Pulmonary nodules 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 Overview: ICD10 Diagnosis 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 documented as of this encounter (statuses [...] Office Visit Orthopedic Surgery Silvestre Nguyễn MD [address] [facility] [address] [place] [address] [phone] Health Maintenance Due Date Last Done Comments [...] of this encounter Implants Implanted Type Area Hammer Mill Operator Device Shelf Model / Identifier Expiration Serial / Date Lot Fibula Segment, [facility] Tissue Services 11+ Cm Freeze Dried 11+ Cm #1006-12 - [id number] BONE Right: [place] 100166-12 / Implanted: Qty: 1 on 12/22/2018 by Silvestre Nguyễn MD at [facility] Leg Tissue Services [id number] / 0 [place] Un3 Shunt Plate,14mm,W/Tab Unruly #2321114 - S0 [place] Right: [place] [id number] / Implanted: Qty: 1 on 08/24/2016 by Tal Kern MD at [facility] Cover Head 0 / 0 [place] Cover, Un3 10mm W/Tab Unruly #0653715 - S0 [place] Right: Unruly [id number] / Implanted: Qty: 1 on 08/24/2016 by Tal Kern MD at [facility] Cover Head 0 / 0 Cable With Crimp 1.3t306tv Sterile Synthes #298.801.01s - Sna CABLE Right: Synthes 08/19/2022 298.801.01S / Implanted: Qty: 1 on 12/22/2018 by Silvestre Nguyễn MD at [facility] Hip NA / [id number] Cable With Crimp 1.1a109oc Sterile Synthes #298.801.01s - S0 CABLE Right: Synthes 08/19/2022 298.801.01S / Implanted: Qty: 1 on 12/22/2018 by Silvestre Nguyễn MD at [facility] Hip 0 / [id number] Cable With Crimp 1.4t913gc Sterile Synthes #298.801.01s - S0 CABLE Right: Synthes 08/19/2022 298.801.01S / Implanted: Qty: 1 on 12/22/2018 by Silvestre Nguyễn MD at [facility] Hip 0 / [id number] Cable With Crimp 1.1k535uv Sterile Synthes #298.801.01s - S0 CABLE Right: Synthes 09/09/2022 298.801.01S / Implanted: Qty: 1 on 12/22/2018 by Silvestre Nguyễn MD at [facility] Hip 0 / [id number] Cable With Crimp 1.0d168tu Sterile Synthes #298.801.01s - S0 CABLE Right: Synthes 08/19/2022 298.801.01S / Implanted: Qty: 1 on 12/22/2018 by Silvestre Nguyễn MD at [facility] Hip 0 / [id number] Cable With Crimp 1.1o318ee Sterile Synthes #298.801.01s - S0 CABLE Right: Synthes 08/19/2022 298.801.01S / Implanted: Qty: 1 on 12/22/2018 by Silvetsre Nguyễn MD at [facility] Hip 0 / [id number] Cable With Crimp 1.3g461lz Sterile Synthes #298.801.01s - S0 CABLE Right: Synthes 08/19/2022 298.801.01S / Implanted: Qty: 1 on 12/22/2018 by Silvestre Nguyễn MD at [facility] Hip 0 / [id number] Femoral Head, [employer]hew Oxinium 06/04 Taper 28 Mm -3 #92448259 - [id number] Femoral Right: [employer] Nephew 11/19/2017 [id number] / Implanted: Qty: 1 on 08/04/2013 by Wendy Brewer MD at [facility] Head Hip / [id number] Femoral Head, [employer] Oxinium 12/14 Taper 28 Mm -3 #77937159 - [id number] Femoral Right: [employer] Nephew 01/20/2020 [id number] / Implanted: Qty: 1 on 10/13/2013 at [facility] Head Hip / [id number] Femoral Stem, [employer]hew Synergy Porous Coated Femoral Sz 12 #88326495 - [id number] Femoral Right: Terrell [employer] Nephew 04/21/2023 [id number] / Implanted: Qty: 1 on 08/04/2013 by Wendy Brewer MD at [facility] Stem Hip / [id number] Femoral Stem, [employer] Synergy Porous Femoral Component Sz 16 #28580469 - [id number] Femoral Right: Terrell [employer] Nephew 05/21/2023 [id number] / Implanted: Qty: 1 on 10/13/2013 at [facility] Stem Hip / [id number] Liner, [employer]rell [employer] Nephew R3 0deg Xlpe Acetabular 28mm Id X Od 46mm #37223369 - [id number] Liner Right: Terrell & Neph 01/20/2018 [id number] / Implanted: Qty: 1 on 08/04/2013 by Wendy Brewer MD at [facility] Hip / [id number] Plate, Synthes 4.5mm Va-Lcp Crvd Condylar 16 H/336mm/Rt #02.124.416 - Sna PLATE Right: Synthes 02.124.416 / Implanted: Qty: 1 on 12/22/2018 by Silvestre Nguyễn MD at [facility] Leg NA / NA Screw, [place] 1.5x4mm Stnd Cross-Pin Slf-Drill #7048822 - S0 SCREW Right: [place] [id number] / Implanted: Qty: 6 on 08/24/2016 by Tal Kern MD at [facility] Head 0 / 0 Screw Bone Compresion Locking 5.0mm 14mml Depuy Ref#02.221.514s - S0 SCREW Right: Depuy Synthes 07/22/2026 02.221.514S / Implanted: Qty: 1 on 12/22/2018 by Silvestre Nguyễn MD at [facility] Hip 0 / [id number] Screw, Synthes 5.0mm Periprosthetic Va Lckng Slf-Tpng/Strdrv/10mm #02.231.010 - Sna SCREW Right: Synthes .010 / Implanted: Qty: 1 on 12/22/2018 by Silvestre Nguyễn MD at [facility] Leg NA / NA Screw, Synthes 5.0mm Periprosthetic Va Lckng Slf-Tpng/Strdrv/14mm #02.231.014 - Sna SCREW Right: Synthes 231.014 / Implanted: Qty: 2 on 12/22/2018 by Silvestre Nguyễn MD at [facility] Leg NA / NA Screw, Synthes 5.0mm Periprosthetic Va Lckng Slf-Tpng/Strdrv/16mm #02.231.016 - Sna SCREW Right: Synthes .016 / Implanted: Qty: 2 on 12/22/2018 by Silvestre Nguyễn MD at [facility] Leg NA / NA Screw, Synthes 5.0mm Periprosthetic Va Lckng Slf-Tpng/Strdrv/18mm #.231.018 - Sna SCREW Right: Synthes .018 / Implanted: Qty: 2 on 12/22/2018 by Silvestre Nguyễn MD at [facility] Leg NA / NA Screw, Synthes 5.0mm Va Angle Lckng Slf-Tpng/Strdrv/28mm #.231.228 - Sna SCREW Right: Synthes .228 / Implanted: Qty: 2 on 12/22/2018 by Silvestre Nguyễn MD at [facility] Leg NA / NA Screw, Synthes 5.0mm Va Angle Lckng Slf-Tpng/Strdrv/40mm #02.231.240 - Sna SCREW Right: Synthes .240 / Implanted: Qty: 1 on 12/22/2018 by Silvestre Nguyễn MD at [facility] Leg NA / NA Screw, Synthes 5.0mm Va Angle Lckng Slf-Tpng/Strdrv/65mm #02.231.265 - Sna SCREW Right: Synthes .265 / Implanted: Qty: 1 on 12/22/2018 by Silvestre Nguyễn MD at [facility] Leg NA / NA Screw, Synthes 5.0mm Va Angle Lckng Slf-Tpng/Strdrv/70mm # - Sna SCREW Right: Synthes / Implanted: Qty: 3 on 12/22/2018 by Silvestre Nguyễn MD at [facility] Leg NA / NA Shell, Terrell [employer] Nephew R3 3 Hole Acetabular 46mm #96101507 - [id number] Shell Right: Terrell [employer] Nephew 04/22/2018 [id number] / Implanted: Qty: 1 on 08/04/2013 by Wendy Brewer MD at [facility] Hip / [id number] Position Pin 4.5mm Threaded Cerclage Synthes #298.803s - S0 Supply Item Right : Synthes 08/19/2025 298.803S / Implanted: Qty: 1 on 12/22/2018 by Silvestre Nguyễn MD at [facility] Hip 0 / [id number] Position Pin 4.5mm Threaded Cerclage Synthes #298.803s - S0 Supply Item Right : Synthes 08/19/2025 298.803S / Implanted: Qty: 1 on 12/22/2018 by Silvestre Nguyễn MD at [facility] Hip 0 / [id number] Position Pin 4.5mm Threaded Cerclage Synthes #298.803s - S0 Supply Item Right : Synthes 01/19/2026 298.803S / Implanted: Qty: 1 on 12/22/2018 by Silvestre Nguyễn MD at [facility] Hip 0 / [id number] Wire, Jeanette Karolyn 16ga Short, 20cm #1292-60 - [id number] WIRE Right: Jeanette 1292-60 / Implanted: Qty: 2 on 10/13/2013 at [facility] Hip / 8mm Self Tapping T25 Stardrive Right: Depuy Synthes .008S / Implanted: Qty: 1 on 12/22/2018 by Silvestre Nguyễn MD at [facility] Leg NA / NA Cerclage Wire 4.5mm Right: Depuy Synthes 298.839S / Implanted: Qty: 3 on 12/22/2018 by Silvestre Nguyễn MD at [facility] Leg NA / NA documented as of this encounter Results Not on filedocumented in this encounter Visit Diagnoses Diagnosis Periprosthetic fracture of shaft of femur documented in this encounter Insurance Payer Benefit Plan / Subscriber ID Effective Phone Address Type Group Dates [facility] [id number] 2018-[facility] [place] Medicare [facility] HEALTHCARE - HEALTHCARE DUAL nt HMO MANAGED COMPLETE O MEDICARE documented as of this encounter
--- OUTSIDE RECORDS SUMMARY | 2019-05-16 07:56 | XMS REPORT ---
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 Problem Frequent falls R29.6 Active Problem History of subdural hematoma Z86.79 Active Problem H/O secondary malignant neoplasm Z85.848 Active of brain and spinal cord Problem 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
--- OUTSIDE RECORDS SUMMARY | 2019-05-16 07:56 | XMS REPORT ---
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 Assessment History of subdural hematoma Z86.79 Active Assessment At risk of seizures Z91.89 Active Assessment Blurry vision H53.8 Active Assessment Hx of cervical cancer Z85.41 Active Assessment Memory loss R41.3 Active Assessment Hyperlipidemia E78.5 Active Problem Cancer C80.1 Active Assessment Chronic kidney disease, stage 3 N18.3 Active Problem Odynophagia R13.10 Active Assessment History of fall Z91.81 Active Problem Hx of cervical cancer Z85.41 Active Problem Traumatic subarachnoid hemorrhage S06.6X0S Active without loss of consciousness, sequela Problem Chronic kidney disease, stage 3 N18.3 Active Problem Blurry vision H53.8 Active Problem Presence of unspecified artificial Z96.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 Assessment Traumatic subarachnoid hemorrhage S06.6X0S Active without loss of consciousness, sequela Assessment Pain of right lower extremity due M79.604 Active to injury Problem Frequent falls R29.6 Active Assessment Periprosthetic fracture around M97.8XXD Active other internal prosthetic joint, subsequent encounter Problem History of subdural hematoma Z86.79 Active Problem H/O secondary malignant neoplasm Z85.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 Active of brain and spinal cord Problem 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 Problem At risk of seizures Z91.89 Active Assessment Noncompliance with medication Z91.14 Active regimen Problem Osteoarthritis M19.90 Active Assessment Physical debility R53.81 Active Problem Renal insufficiency N28.9 Active Problem History of fall Z91.81 Active Problem Seizure R56.9 Active Problem Memory loss R41.3 Active Problem Stroke I63.9 Active Problem Hyperlipidemia E78.5 Active Medications Medication Code Code Instructions Start End Status Dosage System Date Date [facility] 80412052727 81 MG Orally Active 1 tablet Once a day Lipitor [facility] 83262358141 40 MG Orally Active 1 tablet Once a day Lipitor [facility] 68859980695 40 MG Orally Active 1 tablet Once a day Ferrous Sulfate [facility] 31311465010 325 (65 Fe) MG Active 1 tablet Orally Once a day Multivitamin [facility] 32048628832 - Orally Active as Adults 50+ directed Fish Oil [facility] 58343869463 1000 MG Orally Active 1 capsule Once a day Tramadol HCl [facility] 23270123394 50 MG Orally Dec Active as ONCE A DAY PRN 21, directed SEVERE PAIN 2018 Calcium [facility] 18785095854 500 MG Orally Active not defined Acetaminophen [facility] [address]-01 500 MG Orally Active 1 capsule every 6 hrs as needed Results No Known Results Summary Purpose eClinicalWorks Submission
--- OUTSIDE RECORDS SUMMARY | 2019-05-16 07:56 | XMS REPORT | Summary of Care ---
:1955 Author Organization [facility] Address [address] [place] [address] Care Team Providers Name Role Phone Nemesio Rider Primary Care Provider Tal Kern MD Unavailable Reason for Referral Radiology Services (Routine) Status Reason Specialty Diagnoses / Referred By Referred To Procedures Contact Contact New Request Diagnostic Diagnoses Periprosthetic fracture of shaft of femur [facility], Radiology Procedures XR FEMUR 2 VW RIGHT Silvestre Franco MD [address] [place] [address] [place] [address] Radiology Services (Routine) Status Reason Specialty Diagnoses / Referred By Referred To Procedures Contact Contact New Request Diagnostic Diagnoses Periprosthetic fracture of shaft of femur [facility], Radiology Procedures XR FEMUR 2 VW RIGHT Silvestre Franco MD [address] [place] [address] [place] [address] Reason for Visit Radiology Services (Routine) Status Reason Specialty Diagnoses / Referred By Referred To Procedures Contact Contact New Request Diagnostic Diagnoses Periprosthetic fracture of shaft of femur [place], Radiology Procedures XR FEMUR 2 VW RIGHT Silvestre Franco MD [address] [place] [address] [place] [address] Encounter Details Date Type Department Care Team Description 02/24/[address] [facility], Silvestre Franco, Arrived [facility] [address] [facility] 2240 [facility] [address] [facility] 2.100 [place] [address] [phone] Allergies Active Allergy Reactions Severity Noted Date Comments Morphine Rash Low 12/22/2018 Penicillins Itching, Rash 12/22/2005 documented as of this encounter (statuses as of 02/25/2019) Medications Medication Sig Dispensed Refills Start Date [...] as of this encounter (statuses as of 02/25/2019) Active Problems Problem Noted Date Periprosthetic fracture of shaft of femur 12/22/2018 Periprosthetic fracture of femur at tip of prosthesis, initial encounter 12/21 Overview: Added automatically from request for surgery [id number] Blurry vision 09/06/2018 Frequent falls 08/24/2016 At [...] cervix uteri 12/21/2006 Overview: ICD10 Diagnosis Term Lab Engineer Utility 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 Metastasis Other diseases of lung, not elsewhere classified 12/21/2006 Overview: Pulmonary nodules 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 Overview: ICD10 Diagnosis Term Lab Engineer Utility documented as of this encounter (statuses as of 02/25/2019) Social History Tobacco Use Types Packs/Day Years [...] Orthopedic Surgery Wendy Brewer MD [address] [facility] [address] [place] [address] [phone] Health Maintenance Due Date Last Done Comments [...] of this encounter Implants Implanted Type Area Press Operator Automatic Device Shelf Model / Identifier Expiration Serial / Date Lot Fibverna Segment, [facility] Tissue Services 11+ Cm Freeze Dried 11+ Cm #1006-12 - [id number] BONE Right: [facility] 1006-12 / Implanted: Qty: 1 on 12/22/2018 by Silvestre Nguyễn MD at [facility] Leg Tissue Services [id number] / 0 [place] Hole Un3 Shunt Plate,14mm,W/Tab [place] #[id number] - S0 [place] Right: Unruly [id number] / Implanted: Qty: 1 on 08/24/2016 by Tal Kern MD at [facility] Cover Head 0 / 0 [place] Cover, Un3 10mm W/Tab Unruly #[id number] - S0 [place] Right: [place] [id number] / Implanted: Qty: 1 on 08/24/2016 by Tal Kern MD at [facility] Cover Head 0 / 0 Cable With Crimp 1.7w206vh Sterile Synthes #298.801.01s - Sna CABLE Right: Synthes 08/19/2022 298.801.01S / Implanted: Qty: 1 on 12/22/2018 by Silvestre Nguyễn MD at [facility] Hip NA / [id number] Cable With Crimp 1.5b127hh Sterile Synthes #298.801.01s - S0 CABLE Right: Synthes 08/19/2022 298.801.01S / Implanted: Qty: 1 on 12/22/2018 by Silvestre Nguễyn MD at [facility] Hip 0 / [id number] Cable With Crimp 1.9i333vw Sterile Synthes #298.801.01s - S0 CABLE Right: Synthes 08/19/2022 298.801.01S / Implanted: Qty: 1 on 12/22/2018 by Silvestre Nguyễn MD at [facility] Hip 0 / [id number] Cable With Crimp 1.0j160ij Sterile Synthes #298.801.01s - S0 CABLE Right: Synthes 09/09/2022 298.801.01S / Implanted: Qty: 1 on 12/22/2018 by Silvestre Nguyễn MD at [facility] Hip 0 / [id number] Cable With Crimp 1.4o270ug Sterile Synthes #298.801.01s - S0 CABLE Right: Synthes 08/19/2022 298.801.01S / Implanted: Qty: 1 on 12/22/2018 by Silvestre Nguyễn MD at [facility] Hip 0 / [id number] Cable With Crimp 1.5e771dr Sterile Synthes #298.801.01s - S0 CABLE Right: Synthes 08/19/2022 298.801.01S / Implanted: Qty: 1 on 12/22/2018 by Silvestre Nguyễn MD at [facility] Hip 0 / [id number] Cable With Crimp 1.7s917dt Sterile Synthes #298.801.01s - S0 CABLE Right: Synthes 08/19/2022 298.801.01S / Implanted: Qty: 1 on 12/22/2018 by Silvestre Nguyễn MD at [facility] Hip 0 / [id number] Femoral Head, [employer] Oxinium 12/14 Taper 28 Mm -3 #[id number] - [id number] Femoral Right: [employer] 11/19/2017 [id number] / Implanted: Qty: 1 on 08/04/2013 by Wendy Brewer MD at [facility] Head Hip / [id number] Femoral Head, [employer] Oxinium 12/14 Taper 28 Mm -3 #[id number] - [id number] Femoral Right: [employer] 01/20/2020 [id number] / Implanted: Qty: 1 on 10/13/2013 at [facility] Head Hip / [id number] Femoral Stem, [employer] Synergy Porous Coated Femoral Sz 12 #31393760 - [id number] Femoral Right: [employer] 04/21/2023 [id number] / Implanted: Qty: 1 on 08/04/2013 by Wendy Brewer MD at [facility] Stem Hip / [id number] Femoral Stem, [employer] Synergy Porous Femoral Component Sz 16 #[id number] - [id number] Femoral Right: [employer]hew 05/21/2023 [id number] / Implanted: Qty: 1 on 10/13/2013 at [facility] Stem Hip / [id number] Liner, [employer]hew R3 0deg Xlpe Acetabular 28mm Id X Od 46mm #[id number] - [id number] Liner Right: [employer] 01/20/2018 [id number] / Implanted: Qty: 1 on 08/04/2013 by Wendy Brewer MD at [facility] Hip / [id number] Plate, Synthes 4.5mm Va-Lcp Crvd Condylar 16 H/336mm/Rt #02.124.416 - Sna PLATE Right: Synthes 124.416 / Implanted: Qty: 1 on 12/22/2018 by Silvestre Nguyễn MD at [facility] Leg NA / NA Screw, Unruly 1.5x4mm Stnd Cross-Pin Slf-Drill #[id number] - S0 SCREW Right: Unruly [id number] / Implanted: Qty: 6 on 08/24/2016 by Tal Kern MD at [facility] Head 0 / 0 Screw Bone Compresion Locking 5.0mm 14mml Depuy Ref#02.221.514s - S0 SCREW Right: Depuy Synthes 07/22/2026 02.221.514S / Implanted: Qty: 1 on 12/22/2018 by Silvestre Nguyễn MD at [facility] Hip 0 / [id number] Screw, Synthes 5.0mm Periprosthetic Va Lckng Slf-Tpng/Strdrv/10mm #..010 - Sna SCREW Right: Synthes .010 / Implanted: Qty: 1 on 12/22/2018 by Silvestre Nguyễn MD at [facility] Leg NA / NA Screw, Synthes 5.0mm Periprosthetic Va Lckng Slf-Tpng/Strdrv/14mm #.231.014 - Sna SCREW Right: Synthes .014 / Implanted: Qty: 2 on 12/22/2018 by Silvestre Nguyễn MD at [facility] Leg NA / NA Screw, Synthes 5.0mm Periprosthetic Va Lckng Slf-Tpng/Strdrv/16mm #.231.016 - Sna SCREW Right: Synthes .016 / Implanted: Qty: 2 on 12/22/2018 by Silvestre Nguyễn MD at [facility] Leg NA / NA Screw, Synthes 5.0mm Periprosthetic Va Lckng Slf-Tpng/Strdrv/18mm #02.231.018 - Sna SCREW Right: Synthes .018 / Implanted: Qty: 2 on 12/22/2018 by Silvestre Nguyễn MD at [facility] Leg NA / NA Screw, Synthes 5.0mm Va Angle Lckng Slf-Tpng/Strdrv/28mm #02.231.228 - Sna SCREW Right: Synthes .228 / Implanted: Qty: 2 on 12/22/2018 by Silvestre Nguyễn MD at [facility] Leg NA / NA Screw, Synthes 5.0mm Va Angle Lckng Slf-Tpng/Strdrv/40mm #.231.240 - Sna SCREW Right: Synthes .240 / Implanted: Qty: 1 on 12/22/2018 by Silvestre Nguyễn MD at [facility] Leg NA / NA Screw, Synthes 5.0mm Va Angle Lckng Slf-Tpng/Strdrv/65mm #02.231.265 - Sna SCREW Right: Synthes .265 / Implanted: Qty: 1 on 12/22/2018 by Silvestre Nguyễn MD at [facility] Leg NA / NA Screw, Synthes 5.0mm Va Angle Lckng Slf-Tpng/Strdrv/70mm #02.231.270 - Sna SCREW Right: Synthes .270 / Implanted: Qty: 3 on 12/22/2018 by Silvestre Nguyễn MD at [facility] Leg NA / NA Shell, [employer]hew R3 3 Hole Acetabular 46mm #[id number] - [id number] Shell Right: [employer]hew 04/22/2018 [id number] / Implanted: Qty: 1 on 08/04/2013 by Wendy Brewer MD at [facility] Hip / [id number] Position Pin 4.5mm Threaded Cerclage Synthes #298.803s - S0 Supply Item Right : Synthes 08/19/2025 298.803S / Implanted: Qty: 1 on 12/22/2018 by Silvestre Nguyễn MD at [facility] Hip 0 / [id number] Position Pin 4.5mm Threaded Cerclage Synthes #298.803s - S0 Supply Item Right : Synthes 08/19/2025 298.803S / Implanted: Qty: 1 on 12/22/2018 by Silvestre Nguyễn MD at [facility] Hip 0 / [id number] Position Pin 4.5mm Threaded Cerclage Synthes #298.803s - S0 Supply Item Right : Synthes 01/19/2026 298.803S / Implanted: Qty: 1 on 12/22/2018 by Silvestre Nguyễn MD at [facility] Hip 0 / [id number] Wire, Jeanette Karolyn 16ga Short, 20cm #1292-60 - [id number] WIRE Right: Jeanette 1292-60 / Implanted: Qty: 2 on 10/13/2013 at [facility] Hip / 8mm Self Tapping T25 Stardrive Right: Depuy Synthes 02.231.008S / Implanted: Qty: 1 on 12/22/2018 by Silvestre Nguyễn MD at [facility] Leg NA / NA Cerclage Wire 4.5mm Right: Depuy Synthes 298.839S / Implanted: Qty: 3 on 12/22/2018 by Silvestre Nguyễn MD at [facility] Leg NA / NA documented as of this encounter Procedures Procedure Name Priority Date/Time Associated Diagnosis Comments XR FEMUR 2 VW Routine 02/24/2019 3:02 Periprosthetic fracture Results for this RIGHT PM CDT of shaft of femur procedure are in the results section. documented in this encounter Results XR FEMUR 2 VW RIGHT (02/24/2019 3:02 PM CDT) Specimen Impressions Performed At PACS/VR/DOSE Stable hip arthroplasty change with healing periprosthetic fracture. Narrative Performed At EXAM: PACS/VR/DOSE XR FEMUR 2 VW RIGHT HISTORY: pain COMPARISON: December 2018 FINDINGS: Imaging of the right femur demonstrates total hip arthroplasty change. A healing periprosthetic fracture is seen about the femoral stem tip with superimposed tension cable, plate fixation and lateral onlay strut graft fixation. Progressive bridging callus formation is seen about the femoral fracture. Osteopenia is present. Component alignment is unremarkable. Procedure Note [facility], Radiant Results Inft User - 02/24/2019 3:38 PM CDT EXAM: XR FEMUR 2 VW RIGHT HISTORY: pain COMPARISON: December 2018 FINDINGS: Imaging of the right femur demonstrates total hip arthroplasty change. A healing periprosthetic fracture is seen about the femoral stem tip with superimposed tension cable, plate fixation and lateral onlay strut graft fixation. Progressive bridging callus formation is seen about the femoral fracture. Osteopenia is present. Component alignment is unremarkable. IMPRESSION Stable hip arthroplasty change with healing periprosthetic fracture. Performing Organization Address City/State/Zipcode Phone Number PACS/VR/DOSE documented in this encounter Visit Diagnoses Diagnosis Periprosthetic fracture of shaft of femur documented in this encounter Insurance Payer Benefit Plan / Subscriber ID Effective Phone Address Type Group Dates [facility] [id number] 2018-Prese Medicare Adv HEALTHCARE - HEALTHCARE DUAL nt HMO MANAGED COMPLETE O MEDICARE documented as of this encounter
--- OUTSIDE RECORDS SUMMARY | 2019-05-16 07:56 | XMS REPORT | Summary of Care ---
:1955 Author Organization [facility] Address [address] [place] [address] Care Team Providers Name Role Phone Tereso Nemesio Giron Primary Care Provider Tal Kern MD Unavailable Reason for Referral (Routine) Status Reason Specialty Diagnoses / Referred By Referred To Procedures Contact Contact New Request Location Physical Diagnoses Periprosthetic fracture of shaft of femur [facility] Therapy Procedures CONSULT/REFERRAL PHYSICAL THERAPY Silvestre Franco MD [address] [place] [address] 2.[address] [place] [address] Reason for Visit Reason Comments Follow-up Encounter Details Date Type Department Care Team Description 02/24/2019 Office Visit [facility] Silvestre Nguyễn Periprosthetic fracture Orthopaedic SurgeryJim Franco MD of shaft of femur [address] (Primary Dx) [address] [place] [address] 1.[address] [facility] 2[address] [place] [address] [phone] Allergies Active Allergy Reactions Severity Noted Date [...] Overview: Added automatically from request for surgery [id number] Blurry vision 09/06/2018 Frequent falls 08/24/2016 At [...] cervix uteri 12/21/2006 Overview: ICD10 Diagnosis Term Invoicing Specialist Utility 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 Metastasis Other diseases of lung, not elsewhere classified 12/21/2006 Overview: Pulmonary nodules 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 Overview: ICD10 Diagnosis Term Invoicing Specialist Utility documented as of this encounter (statuses [...] Surgery Wendy Brewer MD [id number] [place], [place] [address] Health Maintenance Due Date Last Done Comments [...] of this encounter Implants Implanted Type Area Field Recruiter Device Shelf Model / Identifier Expiration Serial / Date Lot Fibula Segment, [facility] Tissue Services 11+ Cm Freeze Dried 11+ Cm #1006-12 - [id number] BONE Right: [facility] 1006-12 / Implanted: Qty: 1 on 12/22/2018 by Silvestre Nguyễn MD at [facility] Leg Tissue Services [id number] / 0 [place] Hole Un3 Shunt Plate,14mm,W/Tab Unruly #1489170 - S0 [place] Right: Unruly [id number] / Implanted: Qty: 1 on 08/24/2016 by Tal Kern MD at [facility] Cover Head 0 / 0 [place] Hole Cover, Un3 10mm W/Tab Unruly #1411686 - S0 [place] Right: [place] [id number] / Implanted: Qty: 1 on 08/24/2016 by Tal Kern MD at [facility] Cover Head 0 / 0 Cable With Crimp 1.8i856mo Sterile Synthes #298.801.01s - Sna CABLE Right: Synthes 08/19/2022 298.801.01S / Implanted: Qty: 1 on 12/22/2018 by Silvestre Nguyễn MD at [facility] Hip NA / [id number] Cable With Crimp 1.1p072ze Sterile Synthes #298.801.01s - S0 CABLE Right: Synthes 08/19/2022 298.801.01S / Implanted: Qty: 1 on 12/22/2018 by Silvestre Nguyễn MD at [facility] Hip 0 / [id number] Cable With Crimp 1.4w525mf Sterile Synthes #298.801.01s - S0 CABLE Right: Synthes 08/19/2022 298.801.01S / Implanted: Qty: 1 on 12/22/2018 by Silvestre Nguyễn MD at [facility] Hip 0 / [id number] Cable With Crimp 1.5z502qm Sterile Synthes #298.801.01s - S0 CABLE Right: Synthes 09/09/2022 298.801.01S / Implanted: Qty: 1 on 12/22/2018 by Silvestre Nguyễn MD at [facility] Hip 0 / [id number] Cable With Crimp 1.2k468ow Sterile Synthes #298.801.01s - S0 CABLE Right: Synthes 08/19/2022 298.801.01S / Implanted: Qty: 1 on 12/22/2018 by Silvestre Nguyễn MD at [facility] Hip 0 / [id number] Cable With Crimp 1.5j253ll Sterile Synthes #298.801.01s - S0 CABLE Right: Synthes 08/19/2022 298.801.01S / Implanted: Qty: 1 on 12/22/2018 by Silvestre Nguyễn MD at [facility] Hip 0 / [id number] Cable With Crimp 1.9t445qh Sterile Synthes #298.801.01s - S0 CABLE Right: Synthes 08/19/2022 298.801.01S / Implanted: Qty: 1 on 12/22/2018 by Silvestre Nguyễn MD at [facility] Hip 0 / [id number] Femoral Head, [employer] Oxinium 12/14 Taper 28 Mm -3 #14997470 - [id number] Femoral Right: [employer] 11/19/2017 [id number] / Implanted: Qty: 1 on 08/04/2013 by Wendy Brewer MD at [facility] Head Hip / [id number] Femoral Head, [employer] Oxinium 12/14 Taper 28 Mm -3 #59477827 - [id number] Femoral Right: [employer]hew 01/20/2020 [id number] / Implanted: Qty: 1 on 10/13/2013 at [facility] Head Hip / [id number] Femoral Stem, [employer] Synergy Porous Coated Femoral Sz 12 #70449670 - [id number] Femoral Right: [employer]hew 04/21/2023 [id number] / Implanted: Qty: 1 on 08/04/2013 by Wendy Brewer MD at [facility] Stem Hip / [id number] Femoral Stem, [employer] Synergy Porous Femoral Component Sz 16 #88335815 - [id number] Femoral Right: [employer]hew 05/21/2023 [id number] / Implanted: Qty: 1 on 10/13/2013 at [facility] Stem Hip / [id number] Liner, Terrell [employer] Nephew R3 0deg Xlpe Acetabular 28mm Id X Od 46mm #75007507 - [id number] Liner Right: [employer]hew 01/20/2018 [id number] / Implanted: Qty: 1 on 08/04/2013 by Wendy Brewer MD at [facility] Hip / [id number] Plate, Synthes 4.5mm Va-Lcp Crvd Condylar 16 H/336mm/Rt #.416 - Sna PLATE Right: Synthes .416 / Implanted: Qty: 1 on 12/22/2018 by Silvestre Nguyễn MD at [facility] Leg NA / NA Screw, [place] 1.5x4mm Stnd Cross-Pin Slf-Drill #7393131 - S0 SCREW Right: [place] [id number] / Implanted: Qty: 6 on 08/24/2016 by Tal Kern MD at [facility] Head 0 / 0 Screw Bone Compresion Locking 5.0mm 14mml Depuy Ref#02.221.514s - S0 SCREW Right: Depuy Synthes 07/22/2026 02.221.514S / Implanted: Qty: 1 on 12/22/2018 by Silvestre Nguyễn MD at [facility] Hip 0 / [id number] Screw, Synthes 5.0mm Periprosthetic Va Lckng Slf-Tpng/Strdrv/10mm #.010 - Sna SCREW Right: Synthes .010 / Implanted: Qty: 1 on 12/22/2018 by Silvestre Nguyễn MD at [facility] Leg NA / NA Screw, Synthes 5.0mm Periprosthetic Va Lckng Slf-Tpng/Strdrv/14mm #.014 - Sna SCREW Right: Synthes .014 / Implanted: Qty: 2 on 12/22/2018 by Silvestre Nguyễn MD at [facility] Leg NA / NA Screw, Synthes 5.0mm Periprosthetic Va Lckng Slf-Tpng/Strdrv/16mm #.231.016 - Sna SCREW Right: Synthes .016 / Implanted: Qty: 2 on 12/22/2018 by Silvestre Nguyễn MD at [facility] Leg NA / NA Screw, Synthes 5.0mm Periprosthetic Va Lckng Slf-Tpng/Strdrv/18mm #02.231.018 - Sna SCREW Right: Synthes 231.018 / Implanted: Qty: 2 on 12/22/2018 by Silvestre Nguyễn MD at [facility] Leg NA / NA Screw, Synthes 5.0mm Va Angle Lckng Slf-Tpng/Strdrv/28mm #02.231.228 - Sna SCREW Right: Synthes .228 / Implanted: Qty: 2 on 12/22/2018 by Silvestre Nguyễn MD at [facility] Leg NA / NA Screw, Synthes 5.0mm Va Angle Lckng Slf-Tpng/Strdrv/40mm #02.231.240 - Sna SCREW Right: Synthes .240 / Implanted: Qty: 1 on 12/22/2018 by Silvestre Nguyễn MD at [facility] Leg NA / NA Screw, Synthes 5.0mm Va Angle Lckng Slf-Tpng/Strdrv/65mm #02.231.265 - Sna SCREW Right: Synthes 231.265 / Implanted: Qty: 1 on 12/22/2018 by Silvestre Nguyễn MD at [facility] Leg NA / NA Screw, Synthes 5.0mm Va Angle Lckng Slf-Tpng/Strdrv/70mm #02.231.270 - Sna SCREW Right: Synthes 231.270 / Implanted: Qty: 3 on 12/22/2018 by Silvestre Nguyễn MD at [facility] Leg NA / NA Shell, [employer]rell [employer]hew R3 3 Hole Acetabular 46mm #01559961 - [id number] Shell Right: [employer]hew 04/22/2018 [id number] / Implanted: Qty: 1 on 08/04/2013 by Wendy Brewer MD at [facility] Hip / [id number] Position Pin 4.5mm Threaded Cerclage Synthes #298.803s - S0 Supply Item Right : Synthes 08/19/2025 298.803S / Implanted: Qty: 1 on 12/22/2018 by Silvestre Nguyễn MD at [facility] Hip 0 / [id number] Position Pin 4.5mm Threaded Cerclage Synthes #298.803s - S0 Supply Item Right : Synthes 08/19/2025 298.803S / Implanted: Qty: 1 on 12/22/2018 by Silvestre Nguyễn MD at [facility] Hip 0 / [id number] Position Pin 4.5mm Threaded Cerclage Synthes #298.803s - S0 Supply Item Right : Synthes 01/19/2026 298.803S / Implanted: Qty: 1 on 12/22/2018 by Silvestre Nguyễn MD at [facility] Hip 0 / [id number] Wire, Jeanette Karolyn 16ga Short, 20cm #1292-60 - [id number] WIRE Right: Jeanette 1292-60 / Implanted: Qty: 2 on 10/13/2013 at [facility] Hip / 8mm Self Tapping T25 Stardrive Right: Depuy Synthes 02.231.008S / Implanted: Qty: 1 on 12/22/2018 by Silvetsre Nguyễn MD at [facility] Leg NA / NA Cerclage Wire 4.5mm Right: Depuy Synthes 298.839S / Implanted: Qty: 3 on 12/22/2018 by Silvestre Nguyễn MD at [facility] Leg NA / NA documented as of this encounter Results Not on filedocumented in this encounter Visit Diagnoses Diagnosis Periprosthetic fracture of shaft of femur - Primary documented in this encounter Insurance Payer Benefit Plan / Subscriber ID Effective Phone Address Type Group Dates [facility] [id number] 2018-[facility] Medicare [facility] HEALTHCARE - HEALTHCARE DUAL nt HMO MANAGED COMPLETE O MEDICARE documented as of this encounter
[2019-05-16] MEDS ORDERED: ALTEPLASE 0 ML IV ONE (08:06)
[2019-05-16 08:22] LABS: Absolute Lymphocytes (CBC) 2.2 K/uL (0.7-4.9); Basophils % 0.3 % (0-1.3); Hematocrit 40.7 % (36.0-45.0); MPV 8.9 fL (7.6-11.3); RBC Red Blood Cell Count 4.52 M/uL (3.86-4.86)
[2019-05-16 08:31] LABS: Protime INR 1.04
--- NOTE | 2019-05-16 08:36 | RAD REPORT ---
EXAM DESCRIPTION: CT - Ct Stroke Brain Wo Cont - 05/16/2019 8:12 am CLINICAL HISTORY: 3 COMPARISON: CT head November 2018 from [facility] was available through ER physician access. TECHNIQUE: Axial 5 millimeter thick images of the head were obtained without IV contrast. All CT scans are performed using dose optimization technique as appropriate and may include automated exposure control or mA/KV adjustment according to patient size. FINDINGS: In inferior aspect of the right basal ganglia near the genu of the internal capsule there is a small 4-5 mm hyperdense focus. attenuation value is 40 hounsfield units. This finding was not pr esent on the November 2018 outside study. In the acute clinical CVA setting this is suspicious for a smal l basal ganglia hemorrhage. There is edema attenuation along the posterior and medial margin of this focus. As the baseline the patient has advanced atrophy and chronic ischemic change. Encephalomalacia is pre sent in the left frontal lobe from prior CVA or mass lesion. Patient does have an intracranial malign ant history. There are postsurgical changes from craniotomy in the left frontal region. Ventriculosto my or similar surgical access sites are seen in the right frontal bone. No cortical edema or sulcal effacement. No acute cortical based infarction identifiable. Physiologic and arterial calcifications are present. Ventricles are in proportion to volume loss. A small right parietal scalp hematoma is present with intact underlying bone. Mastoid air cells are clear. No acute paranasal sinus finding. No globe or orbital content abnormalit y evident. Initial findings telephoned to the referring physician 8:07 a.m.. Outside imaging was reviewed 8:20 a .m.. IMPRESSION: Small 4-5 mm hyperdense focus in the right basal ganglia is most likely acute hemorrhage . Finding is new from the November 2018 outside study. Patient has prominent atrophy and chronic ischemic change along with left frontal lobe encephalomalac ia presumed to be related to the tumor history rather than old CVA. Both can give this presentation. No acute cortical based infarction is identifiable. Postsurgical changes to the skull as noted. No acute bone process.
--- NOTE | 2019-05-16 08:38 | RAD REPORT ---
EXAM DESCRIPTION: CT - C Spine Wo Con - 05/16/2019 8:12 am CLINICAL HISTORY: CVA, fall, head and neck injury COMPARISON: None. TECHNIQUE: Axial 2 mm thick images of the cervical spine were obtained with sagittal and coronal rec onstruction images generated and reviewed. All CT scans are performed using dose optimization technique as appropriate and may include automated exposure control or mA/KV adjustment according to patient size. FINDINGS: Cervical body height and alignment are normal. C6-7 disc space narrowing present. Minimal endplate spurring changes at this level as well. No fracture or acute bony abnormality. No paraspinal mass or hematoma. Central canal detail is inherently limited on CT imaging. IMPRESSION: Mild cervical spine degenerative change most notable at C6-7. No fracture changes. No acute finding identified.
[2019-05-16 08:50] LABS: Potassium 3.6 mmol/L (3.5-5.1)
--- NOTE | 2019-05-16 09:32 | EKG ---
Test Date: 2019-05-16 Test Time: 08:26:53 Paper Cup Machine Operator: JONES MEASUREMENT RESULTS: Intervals: Rate: 70 LA: 140 QRSD: 76 QT: 406 QTc: 438 [place]: P: 23 LA: 140 QRS: -15 T: -13 INTERPRETIVE STATEMENTS: Normal sinus rhythm normal ECG Compared to ECG 12/21/2018 20:11:52 no significant change from previous ECG Electronically Signed On 05-16-19 09:31:35 CONCESSION STAND ATTENDANT by Iam Archer
--- NOTE | 2019-05-16 09:33 | ER ---
Nurse's Notes [facility] Name: Hodan Dalal Age: 64 yrs Sex: Female : 1955 Arrival Date: 05/16/2019 Time: 07:58 Bed 4 Private MD: Diagnosis: Traumatic Hemorrhagic Stroke secondary to fall;dysarthria;right facial droop;extremity weakness;right occipital hematoma Presentation: 05/16 08:15 Presenting complaint: Father states: We were at home and I found her on the floor, when la1 the ambulance got here she was acting different and her face was drooping on the right. Transition of care: patient was not received from another setting of care. Onset of symptoms was May 16, 2019 at 07:35. Risk Assessment: Do you want to hurt yourself or someone else? Unable to obtain. Initial Sepsis Screen: Does the patient meet any 2 criteria? No. Patient's initial sepsis screen is negative. Does the patient have a suspected source of infection? No. Patient's initial sepsis screen is negative. Care prior to arrival: None. 08:15 Method Of Arrival: EMS: [facility] la1 08:15 Acuity: DEON 1 la1 08:31 An acute neurological deficit is present. Pre-hospital glucose is not applicable to la1 this patient. Stroke Activation: Symptom onset < 3 hours Physician: Stroke Attending; Name: .; Notified At: 07:50; Arrived At: N/A Physician: Chief Stroke Resident; Name: ; Notified At: 07:50; Arrived At: Physician: Stroke Resident; Name: ; Notified At: 07:50; Arrived At: Physician: ED Attending; Name: Dr. Kirk; Notified At: 07:50; Arrived At: 07:50 Physician: ED Resident; Name: ; Notified At: 07:50; Arrived At: Historical: - Allergies: 08:16 PENICILLINS; la1 - PMHx: 08:16 Hyperlipidemia; la1 - Immunization history:: Adult Immunizations unknown. - Social history:: Smoking status: unknown. - Ebola Screening: : No symptoms or risks identified at this time. Screenin:18 VAN Screening: Arm Drift: Minor drift. Visual Disturbance: No visual disturbance noted. la1 Aphasia: Patient exhibits both expressive and receptive aphasia. Provider notified of +VAN scoring. Neglect: No neglect noted. 08:31 Abuse screen: Denies threats or abuse. Denies injuries from another. Nutritional la1 screening: No deficits noted. Tuberculosis screening: No symptoms or risk factors identified. Fall Risk Fall in past 12 months (25 points). Secondary diagnosis (15 points) IV access (20 points). Ambulatory Aid- None/Bed Rest/Nurse Assist (0 pts). Gait- Impaired (20 pts.). Total Antonio Fall Scale indicates High Risk Score (45 or more points). Fall prevention measures have been instituted. Side Rails Up X 2 Family Present and informed to notify staff if the need to leave the bedside. Assessment: 08:28 VAN Scoring: Arm Drift: Minor drift Visual Disturbance: No visual disturbance noted. la1 Aphasia: No aphasia noted. Neglect: No neglect noted. The patient has not been NPO before screening. The patient is alert, and able to follow commands. The patient exhibits slurred or garbled speech. Provider notified of the indication for Speech Therapy consult. The patient failed the bedside swallow screening. The patient will be kept NPO until cleared by Speech Therapy or Physician. Provider notified of bedside swallow screening results: Marlon Kirk MD. T-PA (Activase) Screening: Contraindications: Active peripheral bleeding/history of intracranial bleeding: Yes. 08:30 General: Appears in no apparent distress. Behavior is calm, cooperative. Pain: la1 Complains of pain in right occipital area. Neuro: Level of Consciousness is awake, alert, confused, Oriented to person, place, Checkerer Hand are equal bilaterally Weakness in right arm(s) leg(s) Speech is slurred, Facial droop on right, Pupils are PERRLA. Cardiovascular: Heart tones S1 S2 present Capillary refill < 3 seconds Patient's skin is warm and dry. Rhythm is sinus rhythm. Respiratory: Airway is patent Trachea midline Respiratory effort is even, unlabored, Respiratory pattern is regular, symmetrical, Breath sounds are clear bilaterally. GI: Abdomen is round non-distended, Bowel sounds present X 4 quads. Abd is soft X 4 quads. 08:32 Reassessment: TPA not given due to concerning findings for active bleeding on CT with la1 recent head trauma. 08:59 Neuro: Level of Consciousness is awake, alert, confused, Oriented to person, place, la1 Checkerer Hand are equal bilaterally Weakness in right arm(s) leg(s) Speech is slurred, Facial droop on right. Cardiovascular: Heart tones S1 S2 present Capillary refill < 3 seconds Patient's skin is warm and dry. Respiratory: Airway is patent Trachea midline Respiratory effort is even, unlabored, Respiratory pattern is regular, symmetrical, Breath sounds are clear bilaterally. 09:27 Reassessment: Patient appears in no apparent distress at this time. No changes from la1 previously documented assessment. Patient and/or family updated on plan of care and expected duration. Pain level reassessed. 09:27 Reassessment: report called to [facility] IMU, [place]. la1 Vital Signs: 08:18 BP 124 / 62; Pulse 73; Resp 16; Pulse Ox 98% on R/A; la1 08:59 Temp 98.2; Weight 64.41 kg; la1 08:59 BP 119 / 62; Pulse 74; Resp 16; Pulse Ox 98% on R/A; la1 NIH Stroke Scale Scores: 08:25 NIHSS Score: 9 ps1 08:27 NIHSS Score: 9 la1 08:28 NIHSS Score: 9 la1 ED Course: 07:58 Patient arrived in ED. jr8 08:00 Initial lab(s) drawn, by me, sent to lab. Inserted saline lock: 22 gauge in left jl7 antecubital area, using aseptic technique. Blood collected. 08:05 Marlon Kirk MD is Attending Physician. ps1 08:10 Inserted saline lock: 22 gauge in right wrist, using aseptic technique. jl7 08:12 CT Stroke Brain w/o Contrast In Process Unspecified. EDMS 08:12 C Spine Wo Con In Process Unspecified. EDMS 08:15 Anibal Kwon, RN is Primary Nurse. la1 08:16 Triage completed. la1 08:17 Arm band placed on left wrist. la1 08:28 Stroke CXR 1 View In Process Unspecified. EDMS 08:28 Patient has correct armband on for positive identification. la1 08:34 EKG done, by rad technologist. reviewed by Marlon Kirk MD. sm3 Administered Medications: No medications were administered Point of Care Testing: Blood Glucose: 08:18 Blood Glucose: 99 mg/dL; la1 Ranges: Outcome: 09:32 ER care complete, transfer ordered by . ps1 09:53 Transferred by ground EMS to [facility]. tw2 09:53 Condition: stable 09:53 Instructed on the need for transfer. 09:55 Patient left the ED. tw2 NIH Stroke Scale - NIH Stroke Score Date: 05/16/2019 Time: 08:25 Total Score = 9 1a. Level of Consciousness (LOC) - 0(Alert) 1b. Level of Consciousness (LOC) (Year \T\ Age) - 1(One) 1c. LOC Commands (Open \T\ Closes Eyes/Health And Safety Consultant) - 0(Both) 2. Best Gaze (Lateral Gaze Paresis) - 0(Normal) 3. Visual Field Loss - 0(No visual loss) 4. Facial Palsy - 2(Partial paralysis) 5a. Left Arm: Motor (10-second hold) - 0(No drift) 5b. Right Arm: Motor (10-second hold) - 1(Drift) 6a. Left Leg: Motor (5-second hold - always test supine) - 2(Drift, some effort against gravity) 6b. Right Leg: Motor (5-second hold - always test supine) - 2(Drift, some effort against gravity) 7. Limb Ataxia (finger/nose \T\ heel/membreno - test with eyes open) - 0(Absent) 8. Sensory Loss (pinprick arms/legs/face) - 0(Normal) 9. Best Language: Aphasia (description/naming/reading) - 0(No aphasia) 10. Dysarthria (speech clarity - read or repeat words) - 1(Mild to Moderate) 11. Extinction and Inattention (visual/tactile/auditory/spatial/personal) - 0(No abnormality) Initials: ps1 NIH Stroke Scale - NIH Stroke Score Date: 05/16/2019 Time: 08:27 Total Score = 9 1a. Level of Consciousness (LOC) - 0(Alert) 1b. Level of Consciousness (LOC) (Year \T\ Age) - 1(One) 1c. LOC Commands (Open \T\ Closes Eyes/Health And Safety Consultant) - 0(Both) 2. Best Gaze (Lateral Gaze Paresis) - 0(Normal) 3. Visual Field Loss - 0(No visual loss) 4. Facial Palsy - 2(Partial paralysis) 5a. Left Arm: Motor (10-second hold) - 0(No drift) 5b. Right Arm: Motor (10-second hold) - 1(Drift) 6a. Left Leg: Motor (5-second hold - always test supine) - 2(Drift, some effort against gravity) 6b. Right Leg: Motor (5-second hold - always test supine) - 2(Drift, some effort against gravity) 7. Limb Ataxia (finger/nose \T\ heel/membreno - test with eyes open) - 0(Absent) 8. Sensory Loss (pinprick arms/legs/face) - 0(Normal) 9. Best Language: Aphasia (description/naming/reading) - 0(No aphasia) 10. Dysarthria (speech clarity - read or repeat words) - 1(Mild to Moderate) 11. Extinction and Inattention (visual/tactile/auditory/spatial/personal) - 0(No abnormality) Initials: tarun NIH Stroke Scale - NIH Stroke Score Date: 05/16/2019 Time: 08:28 Total Score = 9 1a. Level of Consciousness (LOC) - 0(Alert) 1b. Level of Consciousness (LOC) (Year \T\ Age) - 1(One) 1c. LOC Commands (Open \T\ Closes Eyes/Health And Safety Consultant) - 0(Both) 2. Best Gaze (Lateral Gaze Paresis) - 0(Normal) 3. Visual Field Loss - 0(No visual loss) 4. Facial Palsy - 2(Partial paralysis) 5a. Left Arm: Motor (10-second hold) - 0(No drift) 5b. Right Arm: Motor (10-second hold) - 1(Drift) 6a. Left Leg: Motor (5-second hold - always test supine) - 2(Drift, some effort against gravity) 6b. Right Leg: Motor (5-second hold - always test supine) - 2(Drift, some effort against gravity) 7. Limb Ataxia (finger/nose \T\ heel/membreno - test with eyes open) - 0(Absent) 8. Sensory Loss (pinprick arms/legs/face) - 0(Normal) 9. Best Language: Aphasia (description/naming/reading) - 0(No aphasia) 10. Dysarthria (speech clarity - read or repeat words) - 1(Mild to Moderate) 11. Extinction and Inattention (visual/tactile/auditory/spatial/personal) - 0(No abnormality) Initials: laNataliia Signatures: Dispatcher [employer] EDMS Roszak, Devan, PA PA jr8 Anibal Kwon RN RN la1 Peri Santana RN RN tw2 Traci Narvaez RN RN jl7 Marlon Kirk MD MD ps1 Dalila Chiang 3
--- NOTE | 2019-05-16 09:34 | EDPHYS ---
Physician Documentation [facility] Name: Hodan Dalal Age: 64 yrs Sex: Female : 1955 Arrival Date: 05/16/2019 Time: 07:58 Bed 4 Private MD: ED Physician Marlon Kirk HPI: 05/16 08:30 This 64 yrs old Female presents to ER via EMS with complaints of S/S of ps1 Possible Stroke. 08:30 Not on blood thinners. LKN [id number]. Unwitnessed fall this morning. Had FND when EMS ps1 arrived 15 min [employer]. No seizure. Hx of brain tumor with surgery 10 years ago. Has scalp hematoma on right occipital area. Dysarthria and weakness in right upper and lower. Baseline weakness and states that she is profoundly different and confused. . Historical: - Allergies: 08:16 PENICILLINS; la1 - PMHx: 08:16 Hyperlipidemia; la1 - Immunization history:: Adult Immunizations unknown. - Social history:: Smoking status: unknown. - Ebola Screening: : No symptoms or risks identified at this time. ROS: 08:33 Unable to obtain ROS due to altered mental status, patient's speech is ps1 incomprehensible, patient is confused and dysarthric. Exam: 08:25 Radiologist reports: possible hemorrhagic stroke within the right thalamus. ps1 08:25 Constitutional: This is a well developed, well nourished patient who is awake, alert, and in no acute distress. 08:25 Eyes: Pupils equal round and reactive to light, extra-ocular motions intact. Lids and lashes normal. Conjunctiva and sclera are non-icteric and not injected. Chest/axilla: Normal chest wall appearance and motion. Nontender with no deformity. No lesions are appreciated. Cardiovascular: Regular rate and rhythm. No gallops, murmurs, or rubs. Normal PMI, no JVD. No pulse deficits. Respiratory: Lungs have equal breath sounds bilaterally, clear to auscultation and percussion. No rales, rhonchi or wheezes noted. No increased work of breathing, no retractions or nasal flaring. Abdomen/GI: Soft, non-tender, with normal bowel sounds. No distension or tympany. No guarding or rebound. No evidence of tenderness throughout. MS/ Extremity: Pulses equal, no cyanosis. Neurovascular intact. Full, normal range of motion. 08:25 Head/face: Noted is contusion, that is superficial, of the right occipital area. 08:25 Neuro: Orientation: Not oriented to situation, Mentation: confused, Cranial nerves: normal except right facial droop, Motor: Hypotonic in right arm and right leg. seizure activity, is not displayed by the patient. 09:29 ECG was reviewed by the Attending Physician. ps1 Vital Signs: 08:18 BP 124 / 62; Pulse 73; Resp 16; Pulse Ox 98% on R/A; la1 08:59 Temp 98.2; Weight 64.41 kg; la1 08:59 BP 119 / 62; Pulse 74; Resp 16; Pulse Ox 98% on R/A; la1 NIH Stroke Scale Scores: 08:25 NIHSS Score: 9 ps1 08:27 NIHSS Score: 9 la1 08:28 NIHSS Score: 9 la1 MDM: 08:30 Differential diagnosis: CVA, TIA, paralysis, metabolic disorder, Hemmorhagic stroke. ps1 Data reviewed: vital signs, nurses notes. Counseling: I had a detailed discussion with the patient and/or guardian regarding: the historical points, exam findings, and any diagnostic results supporting the discharge/admit diagnosis, radiology results, the need to transfer to another facility, for higher level of care. 08:51 Patient medically screened. ps1 09:32 ED course: spoke with radiologist Dr. Shaffer given findings of hemorrhage. No TPA at ps1 this time. Comparative study from [facility] 11/2018. Transfer to Dr. Johnston for stroke service evaluation. On reassessment patient is improving with becoming more cogent and movement. Discussed with family plan of care. Patient to be transferred to IMU. . 05/16 08:00 Order name: Basic Metabolic Panel; Complete Time: 08:50 05/16 08:00 Order name: CBC with Diff; Complete Time: 08:50 05/16 08:00 Order name: Protime (+inr); Complete Time: 08:50 05/16 08:00 Order name: Ptt, Activated; Complete Time: 08:50 05/16 08:00 Order name: CT Stroke Brain w/o Contrast; Complete Time: 08:50 05/16 08:00 Order name: Stroke CXR 1 View 05/16 08:00 Order name: EKG; Complete Time: 08:05/16 08:00 Order name: Accucheck; Complete Time: 05/16 08:00 Order name: Cardiac monitoring; Complete Time: :05/16 08:00 Order name: EKG - Nurse/Tech; Complete Time: :05/16 08:00 Order name: IV Saline Lock; Complete Time: 05/16 08:00 Order name: Labs collected and sent; Complete Time: :05/16 08:00 Order name: NPO; Complete Time: :05/16 08:10 Order name: C Spine Wo Con; Complete Time: 08:50 EDMS 05/16 08:00 Order name: O2 Per Protocol; Complete Time: :05/16 08:00 Order name: O2 Sat Monitoring; Complete Time: 05/16 08:00 Order name: Stroke Swallow Screen; Complete Time: EC: Rate is 70 beats/min. Rhythm is regular. QRS [place] is Normal. PA interval is normal. QRS ps1 interval is normal. QT interval is normal. No Q waves. T waves are Normal. No ST changes noted. Clinical impression: incomplete RBBB. Administered Medications: No medications were administered Point of Care Testing: Blood Glucose: 08:18 Blood Glucose: 99 mg/dL; la1 Ranges: Critical Glucose Levels:Adult <50 mg/dl or >400 mg/dl <40 mg/dl or >180 mg/dl Disposition: 05/16/19 09:32 Transfer ordered to Other Acute Care Facility. Diagnosis are Traumatic Hemorrhagic Stroke secondary to fall, dysarthria, right facial droop, extremity weakness, right occipital hematoma. - Reason for transfer: Higher level of care. - Accepting physician is Preston. - Condition is Fair. - Problem is new. - Symptoms have improved. Critical care time excluding procedures: 09:32 Critical care time: Bedside Care: 25 minutes, Consultation: 10 minutes, Family ps1 Intervention: 15 minutes. Total time: 50 minutes NIH Stroke Scale - NIH Stroke Score Date: 05/16/2019 Time: 08: Total Score = 9 1a. Level of Consciousness (LOC) - 0(Alert) 1b. Level of Consciousness (LOC) (Year \T\ Age) - 1(One) 1c. LOC Commands (Open \T\ Closes Eyes/Drapery And Upholstery Estimator) - 0(Both) 2. Best Gaze (Lateral Gaze Paresis) - 0(Normal) 3. Visual Field Loss - 0(No visual loss) 4. Facial Palsy - 2(Partial paralysis) 5a. Left Arm: Motor (10-second hold) - 0(No drift) 5b. Right Arm: Motor (10-second hold) - 1(Drift) 6a. Left Leg: Motor (5-second hold - always test supine) - 2(Drift, some effort against gravity) 6b. Right Leg: Motor (5-second hold - always test supine) - 2(Drift, some effort against gravity) 7. Limb Ataxia (finger/nose \T\ heel/membreno - test with eyes open) - 0(Absent) 8. Sensory Loss (pinprick arms/legs/face) - 0(Normal) 9. Best Language: Aphasia (description/naming/reading) - 0(No aphasia) 10. Dysarthria (speech clarity - read or repeat words) - 1(Mild to Moderate) 11. Extinction and Inattention (visual/tactile/auditory/spatial/personal) - 0(No abnormality) Initials: ps1 NIH Stroke Scale - NIH Stroke Score Date: 05/16/2019 Time: 08:27 Total Score = 9 1a. Level of Consciousness (LOC) - 0(Alert) 1b. Level of Consciousness (LOC) (Year \T\ Age) - 1(One) 1c. LOC Commands (Open \T\ Closes Eyes/Drapery And Upholstery Estimator) - 0(Both) 2. Best Gaze (Lateral Gaze Paresis) - 0(Normal) 3. Visual Field Loss - 0(No visual loss) 4. Facial Palsy - 2(Partial paralysis) 5a. Left Arm: Motor (10-second hold) - 0(No drift) 5b. Right Arm: Motor (10-second hold) - 1(Drift) 6a. Left Leg: Motor (5-second hold - always test supine) - 2(Drift, some effort against gravity) 6b. Right Leg: Motor (5-second hold - always test supine) - 2(Drift, some effort against gravity) 7. Limb Ataxia (finger/nose \T\ heel/membreno - test with eyes open) - 0(Absent) 8. Sensory Loss (pinprick arms/legs/face) - 0(Normal) 9. Best Language: Aphasia (description/naming/reading) - 0(No aphasia) 10. Dysarthria (speech clarity - read or repeat words) - 1(Mild to Moderate) 11. Extinction and Inattention (visual/tactile/auditory/spatial/personal) - 0(No abnormality) Initials: la1 NIH Stroke Scale - NIH Stroke Score Date: 05/16/2019 Time: 08:28 Total Score = 9 1a. Level of Consciousness (LOC) - 0(Alert) 1b. Level of Consciousness (LOC) (Year \T\ Age) - 1(One) 1c. LOC Commands (Open \T\ Closes Eyes/Drapery And Upholstery Estimator) - 0(Both) 2. Best Gaze (Lateral Gaze Paresis) - 0(Normal) 3. Visual Field Loss - 0(No visual loss) 4. Facial Palsy - 2(Partial paralysis) 5a. Left Arm: Motor (10-second hold) - 0(No drift) 5b. Right Arm: Motor (10-second hold) - 1(Drift) 6a. Left Leg: Motor (5-second hold - always test supine) - 2(Drift, some effort against gravity) 6b. Right Leg: Motor (5-second hold - always test supine) - 2(Drift, some effort against gravity) 7. Limb Ataxia (finger/nose \T\ heel/membreno - test with eyes open) - 0(Absent) 8. Sensory Loss (pinprick arms/legs/face) - 0(Normal) 9. Best Language: Aphasia (description/naming/reading) - 0(No aphasia) 10. Dysarthria (speech clarity - read or repeat words) - 1(Mild to Moderate) 11. Extinction and Inattention (visual/tactile/auditory/spatial/personal) - 0(No abnormality) Initials: la1 Signatures: Dispatcher [employer] EDMS Anibal Kwon RN RN la1 Peri Santana RN RN tw2 Traci Narvaez RN RN jl7 Marlon Kirk MD MD ps1 Corrections: (The following items were deleted from the chart) 09:55 09:32 05/16/2019 09:32 Transfer ordered to Other Acute Care Facility. Diagnosis tw2 is Traumatic Hemorrhagic Stroke secondary to fall; dysarthria; right facial droop; extremity weakness; right occipital hematoma. Reason for transfer: Higher level of care. Accepting physician is Preston. Condition is Fair. Problem is new. Symptoms have improved. ps1
[2019-05-16 10:11] VITALS: BP 119/62; TEMP 98.2; O2SAT 98
--- NOTE | 2019-05-16 10:45 | RAD REPORT ---
EXAM DESCRIPTION: RAD - Chest Single View - 05/16/2019 8:28 am CLINICAL HISTORY: Stroke protocol chest film COMPARISON: December 21 TECHNIQUE: AP portable chest image was obtained 0823 hours . FINDINGS: Low lung volumes noted. No peripheral mass, consolidation or failure findings. Lung parenc hyma similar to comparison. Heart and vasculature are normal. No measurable pleural effusion and no p neumothorax. No acute bony abnormality seen. No acute aortic findings suspected. IMPRESSION: No acute cardiopulmonary process. No significant interval change.
== END 2019-05-16 09:55 ==
LOC: ER 07:52
DX: S06.360A Traumatic hemorrhage of cerebrum, unspecified, without loss of consciousness, initial encounter (principal); R53.1 Weakness; R29.810 Facial weakness; W19.XXXA Unspecified fall, initial encounter; Y93.9 Activity, unspecified; Y92.9 Unspecified place or not applicable; R29.709 NIHSS score 9; Z88.0 Allergy status to penicillin
CPT/HCPCS: 36415; 70450; 71045; 72125; 80048; 82947; 85025; 85610; 85730; 93005; 99291; J2997